=== PATIENT | female | born 1990 | race Caucasian/White ===

== ENCOUNTER 2016-07-03 11:00 | Outpatient (RCR) | payer OTHER | END 2016-07-18 | LOC: M OUTALCOH 11:00 | PROVIDERS: ATTEND Psychiatry & Neurology Psychiatry | DX: F11.20 Opioid dependence, uncomplicated (principal); F17.200 Nicotine dependence, unspecified, uncomplicated ==

== ENCOUNTER → 2016-09-15 | Outpatient (RCR) | payer OTHER ==
[~2016-09-15] MED LIST: AMIT24CA5 PO; IRON50TA PO; LATU1TAB PO; SUBO12MI SL; TRAZO50TA FT
== END ==
LOC: M OUTALCOH 08-17 09:58
PROVIDERS: ATTEND Psychiatry & Neurology Psychiatry
DX: F11.20 Opioid dependence, uncomplicated (principal); F17.200 Nicotine dependence, unspecified, uncomplicated

== ENCOUNTER 2016-09-17 10:35 | Emergency (ER) | payer OTHER ==
[~2016-09-17] VITALS: Ht 152.4 cm; Wt 47.6 kg
[2016-09-17 10:35] VITALS: BP 103/59
[2016-09-17] MEDS ORDERED: TRAZO50TA FT (10:50)
[2016-09-17] MEDS ORDERED: AMIT24CA5 PO (10:50)
[2016-09-17] MEDS ORDERED: IRON50TA PO (10:50)
[2016-09-17] MEDS ORDERED: SUBO12MI SL (10:50)
[2016-09-17] MEDS ORDERED: LATU1TAB PO (10:50)
[2016-09-17] MEDS ORDERED: MAGNESIUM CITRATE 300 ML BTL PO ONE (12:15)
[2016-09-17] MEDS ORDERED: GLYCERIN ADULT SUPP PR ONE (12:15)
== END 2016-09-17 12:16 | disposition home or self-care (01) ==
LOC: M ED 11:22
DX: K59.00 Constipation, unspecified (principal)

== ENCOUNTER 2016-10-13 13:00 | Outpatient (RCR) | payer OTHER | END 2016-10-15 | LOC: M OUTALCOH 13:00 | PROVIDERS: ATTEND Psychiatry & Neurology Psychiatry | DX: F11.20 Opioid dependence, uncomplicated (principal); F17.200 Nicotine dependence, unspecified, uncomplicated ==

== ENCOUNTER → 2016-11-15 | Outpatient (RCR) | payer OTHER | LOC: M OUTALCOH 10-19 13:00 | PROVIDERS: ATTEND Psychiatry & Neurology Psychiatry | DX: F11.20 Opioid dependence, uncomplicated (principal); F17.200 Nicotine dependence, unspecified, uncomplicated ==

== ENCOUNTER → 2016-11-24 | Outpatient (CLI) | payer OTHER ==
[2016-11-24 10:41] LABS: CONTROL LINE UCG INT CTR LINE PRESENT
== END ==
LOC: M LAB 09:46
PROVIDERS: ATTEND Family Medicine Adult Medicine
DX: F41.9 Anxiety disorder, unspecified (principal)

== ENCOUNTER → 2016-12-15 | Outpatient (RCR) | payer OTHER ==
[~2016-12-15] MED LIST changes: -AMIT24CA5 PO; +AMIT24CA7 PO; +BACT800T5 PO; +NAPR500T PO; +PROZ20CA11 PO; +PYRI1TAB5 PO
== END | disposition home or self-care (01) ==
LOC: M OUTALCOH 12-01 15:38
PROVIDERS: ATTEND Psychiatry & Neurology Psychiatry
DX: F11.20 Opioid dependence, uncomplicated (principal); F17.200 Nicotine dependence, unspecified, uncomplicated

== ENCOUNTER → 2016-12-15 | Outpatient (RCR) | payer OTHER | END | disposition home or self-care (01) | LOC: M OUTALCOH 11-17 15:03 | PROVIDERS: ATTEND Psychiatry & Neurology Psychiatry | DX: F11.20 Opioid dependence, uncomplicated (principal); F17.200 Nicotine dependence, unspecified, uncomplicated ==

== ENCOUNTER 2016-12-24 12:17 | Emergency (ER) | payer OTHER ==
[~2016-12-24] VITALS: Ht 152.4 cm; Wt 54.1 kg
[~2016-12-24 12:17] MED LIST changes: -BACT800T5 PO; -NAPR500T PO; -PROZ20CA11 PO; -PYRI1TAB5 PO
[2016-12-24] MEDS ORDERED: PROZ20CA11 PO (12:36)
[2016-12-24] MEDS ORDERED: NS 500 ML IV ONE (14:00)
[2016-12-24] MEDS ORDERED: KETOROLAC 30 MG/ML VIAL (J1885) IV ONE (14:00)
[2016-12-24] MEDS ORDERED: TRIMETHOBENZAMIDE HCL INJ 200 MG/2 ML VIAL (J3250) IM ONE (14:00)
[2016-12-24] MEDS ORDERED: diphenhydrAMINE INJ 50MG/ML VIAL (J1200) IV ONE (14:00)
--- NOTE | 2016-12-24 14:26 | REP ---
Clinical: Migraines with visual disturbances . Comparison: 08/29/2012 . Findings: The ventricles, sulci, and cisterns are normal in position and appearance. Byers-white differentiation is maintained. No acute intracranial hemorrhage, mass/mass effect, pathology or trauma/injury. No evidence for acute infarction. No extra-axial fluid collection. Calvarium is intact. Paranasal sinuses and mastoid air cells are clear. Impression: Normal noncontrast head CT. No evidence for acute intracranial pathology or trauma/injury. Signed by Micheal Avila MD 12/24/2016 02:18 P
[2016-12-24 15:20] VITALS: BP 116/58
== END 2016-12-24 15:55 | disposition home or self-care (01) ==
LOC: M ED 12:17
DX: R51 Headache (principal); F31.9 Bipolar disorder, unspecified; F17.210 Nicotine dependence, cigarettes, uncomplicated

== ENCOUNTER 2016-12-26 18:53 | Emergency (ER) | payer OTHER ==
[~2016-12-26] VITALS: Ht 152.4 cm; Wt 51.7 kg
[~2016-12-26 18:53] MED LIST changes: +PROZ20CA11 PO
[2016-12-26] MEDS ORDERED: PHENAZOPYRIDINE 100 MG TAB PO ONE (19:30)
[2016-12-26] MEDS ORDERED: ONDANSETRON 4 MG ORAL DISINTEGRATING TAB (S0181) PO ONE (19:45)
[2016-12-26] MEDS ORDERED: NAPROXEN 250 MG TAB PO ONE (19:45)
[2016-12-26 20:05] LABS: BASO % 0.7 % (0.0-1.0); EOS # 0.3 K/mm3 (0.0-0.50); EOS % 4.4 % (0.0-3.0); LARGE UNSTAINED CELL # 0.2 K/mm3 (0.0-0.4); LARGE UNSTAINED CELL % 2.1 % (0.0-4.0); LYMPH # 2.8 K/mm3 (1.5-6.5); LYMPH % 36.8 % (24.0-44.0); MEAN CORPUSCULAR HEMOGLOBIN 31.7 pg (27.0-33.0); MEAN CORPUSCULAR HGB CONC 36.2 g/dl (32.0-36.5); MEAN CORPUSCULAR VOLUME 87.7 fl (80.0-96.0); MONO # 0.4 K/mm3 (0.0-0.8); MONO % 4.6 % (0.0-5.0); NEUTROPHILS # 3.9 K/mm3 (1.8-7.7); NEUTROPHILS % 51.4 % (36.0-66.0); PLATELET COUNT, AUTOMATED 324 k/mm3 (150-450); RED CELL DISTRIBUTION WIDTH 11.7 % (11.5-14.5); WHITE BLOOD COUNT 7.6 K/mm3 (4.0-10.0)
[2016-12-26 20:12] LABS: ANION GAP 8 MEQ/L (8-16); BLOOD UREA NITROGEN 6 MG/DL (7-18); CALCIUM LEVEL 8.7 MG/DL (8.5-10.1); CARBON DIOXIDE LEVEL 26 MEQ/L (21-32); CHLORIDE LEVEL 100 MEQ/L (98-107); GLOMERULAR FILTRATION RATE > 60.0 (>60); GLUCOSE, FASTING 96 MG/DL (70-105); POTASSIUM SERUM 3.7 MEQ/L (3.5-5.1); SODIUM LEVEL 134 MEQ/L (136-145)
[2016-12-26 21:25] LABS: ERYTHROCYTE SEDIMENTATION RATE 15 mm/hr (0-20)
[2016-12-26] MEDS ORDERED: NAPR500T PO (21:26)
[2016-12-26] MEDS ORDERED: BACT800T5 PO (21:26)
[2016-12-26] MEDS ORDERED: PYRI1TAB5 PO (21:26)
[2016-12-26] MEDS ORDERED: BACTRIM 160MG/800MG DS TAB PO ONE (21:30)
[2016-12-26 21:34] VITALS: BP 110/63
== END 2016-12-26 21:37 | disposition home or self-care (01) ==
LOC: M ED 18:53
DX: N39.0 Urinary tract infection, site not specified (principal); R51 Headache

== ENCOUNTER 2017-01-04 15:47 | Emergency (ER) | payer OTHER ==
[~2017-01-04] VITALS: Ht 152.4 cm; Wt 45.5 kg
[~2017-01-04 15:47] MED LIST changes: +BACT800T5 PO; +NAPR500T PO; +PYRI1TAB5 PO
[2017-01-04 17:04] LABS: MICROSCOPIC INDICATED? MAN YES (NO)
[2017-01-04 17:19] LABS: BACTERIA, URINE MOD AMOUNT; HYALINE CAST, URINE NONE SEEN /lpf (0-1); RBC, URINE 0-1 /hpf (0-3); SQUAMOUS EPITHELIAL CELL URINE MOD AMOUNT /hpf (SMALL AMT)
[2017-01-04 17:20] LABS: MICROSCOPIC EXAM PERFORMED
[2017-01-04] MEDS ORDERED: PYRI1TAB5 PO (17:38)
[2017-01-04 17:48] VITALS: BP 109/61
== END 2017-01-04 17:53 | disposition home or self-care (01) ==
LOC: M ED 15:47
DX: R30.0 Dysuria (principal); R10.2 Pelvic and perineal pain; R11.0 Nausea; Z87.891 Personal history of nicotine dependence

== ENCOUNTER 2017-01-12 13:00 | Outpatient (RCR) | payer OTHER | END 2017-01-15 | LOC: M OUTALCOH 13:00 | PROVIDERS: ATTEND Psychiatry & Neurology Psychiatry | DX: F11.20 Opioid dependence, uncomplicated (principal); F17.200 Nicotine dependence, unspecified, uncomplicated ==

== ENCOUNTER 2017-01-19 10:00 | Outpatient (RCR) | payer OTHER | END 2017-02-15 | LOC: M OUTALCOH 10:00 | PROVIDERS: ATTEND Psychiatry & Neurology Psychiatry | DX: F11.20 Opioid dependence, uncomplicated (principal); F17.200 Nicotine dependence, unspecified, uncomplicated ==

== ENCOUNTER 2017-03-08 15:05 | Outpatient (RCR) | payer OTHER | END 2017-03-17 | LOC: M OUTALCOH 15:05 | PROVIDERS: ATTEND Psychiatry & Neurology Psychiatry | DX: F11.20 Opioid dependence, uncomplicated (principal); F17.200 Nicotine dependence, unspecified, uncomplicated ==

== ENCOUNTER 2017-07-22 05:17 | Inpatient (IN) | payer OTHER ==
[2017-07-22 06:20] LABS: HEMATOCRIT 37.8 % (36.0-47.0); HEMOGLOBIN 13.7 g/dl (12.0-16.0); MEAN CORPUSCULAR HEMOGLOBIN 31.7 pg (27.0-33.0); MEAN CORPUSCULAR HGB CONC 36.2 g/dl (32.0-36.5); MEAN CORPUSCULAR VOLUME 87.5 fl (80.0-96.0); PLATELET COUNT, AUTOMATED 340 10^3/uL (150-450); RED BLOOD COUNT 4.32 10^6/uL (4.00-5.40); RED CELL DISTRIBUTION WIDTH 11.9 % (11.5-14.5); WHITE BLOOD COUNT 7.2 10^3/uL (4.0-10.0)
[2017-07-22 06:48] LABS: CONTROL LINE HCG INT CTR LINE PRESENT; HCG, SERUM QUALITATIVE NEGATIVE (NEGATIVE)
[2017-07-22 06:56] LABS: AMPHETAMINES LEVEL URINE POSITIVE (NEGATIVE); BARBITURATES URINE NEGATIVE (NEGATIVE); BENZODIAZEPINES URINE NEGATIVE (NEGATIVE); CANNABINOIDS URINE NEGATIVE (NEGATIVE); COCAINE METABOLITE URINE NEGATIVE (NEGATIVE); METHADONE URINE NEGATIVE (NEGATIVE); OPIATES URINE NEGATIVE (NEGATIVE); PHENCYCLIDINE URINE NEGATIVE (NEGATIVE)
[2017-07-22 07:05] LABS: ALBUMIN 4.2 GM/DL (3.2-5.2); ALBUMIN/GLOBULIN RATIO 1.14 (1.00-1.93); ALKALINE PHOSPHATASE 83 U/L (45-117); ALT/SGPT 17 U/L (12-78); ANION GAP 12 MEQ/L (8-16); AST/SGOT 25 U/L (7-37); BILIRUBIN,DIRECT 0.3 MG/DL (0.0-0.2); BILIRUBIN,TOTAL 0.9 MG/DL (0.2-1.0); BLOOD UREA NITROGEN 5 MG/DL (7-18); CALCIUM LEVEL 9.5 MG/DL (8.5-10.1); CARBON DIOXIDE LEVEL 23 MEQ/L (21-32); CHLORIDE LEVEL 106 MEQ/L (98-107); CREATININE FOR GFR 0.62 MG/DL (0.55-1.30); ETHYL ALCOHOL (ETHANOL) < 0.003 % (0.000-0.010); GLOMERULAR FILTRATION RATE > 60.0 (>60); GLUCOSE, FASTING 103 MG/DL (70-100); POTASSIUM SERUM 3.8 MEQ/L (3.5-5.1); SALICYLATE LEVEL < 1.7 MG/DL (5.0-30.0); SODIUM LEVEL 141 MEQ/L (136-145); TOTAL PROTEIN 7.9 GM/DL (6.4-8.2)
[2017-07-22 07:07] LABS: ACETAMINOPHEN LEVEL < 2.0 UG/ML (10.0-30.0)
[2017-07-22] MEDS: LORazepam 1 MG TAB PO ×2 (09:38→12:05)
[2017-07-22] MEDS ORDERED: ACETAMINOPHEN TAB 650MG DOSE (2X325MG) PO (10:45)
[2017-07-22] MEDS ORDERED: MAALOX 30 ML SUSP *UDC PO (10:45)
[2017-07-22] MEDS ORDERED: MOM 30ML SUSPENSION UDC PO (10:45)
[2017-07-22] MEDS: BUPRENORPHINE/NALOXONE 8-2MG SUBLINGUAL TABLET(SUBOXONE) SL (12:55)
[2017-07-22] MEDS: OLANZapine ORAL DISINTEGRATING TAB 5MG PO (14:18)
[2017-07-23] MEDS: BUPRENORPHINE/NALOXONE 8-2MG SUBLINGUAL TABLET(SUBOXONE) SL (09:31)
[2017-07-23] MEDS ORDERED: MIRALAX *UNIT DOSE* 17GM PACKET PO (09:45)
[2017-07-23] MEDS: DOCUSATE SODIUM 100 MG CAP PO ×2 (10:02→20:33)
[2017-07-23] MEDS: SERTRALINE HCL 25 MG TABLET PO (15:29)
[2017-07-23] MEDS: traZODone 50 MG TAB PO (20:33)
[2017-07-23] MEDS: DIVALPROEX 250MG *ER* TAB PO (20:33)
[2017-07-24] MEDS: DIVALPROEX 250MG *ER* TAB PO ×2 (08:27→20:36)
[2017-07-24] MEDS: BUPRENORPHINE/NALOXONE 8-2MG SUBLINGUAL TABLET(SUBOXONE) SL (08:27)
[2017-07-24] MEDS: SERTRALINE HCL 25 MG TABLET PO (08:27)
[2017-07-24] MEDS: DOCUSATE SODIUM 100 MG CAP PO ×2 (08:27→20:36)
[2017-07-24] MEDS: OLANZapine ORAL DISINTEGRATING TAB 5MG PO (18:20)
[2017-07-24] MEDS: traZODone 50 MG TAB PO (20:36)
[2017-07-25] MEDS: DOCUSATE SODIUM 100 MG CAP PO (09:04)
[2017-07-25] MEDS: BUPRENORPHINE/NALOXONE 8-2MG SUBLINGUAL TABLET(SUBOXONE) SL (09:04)
[2017-07-25] MEDS: SERTRALINE HCL 25 MG TABLET PO (09:04)
[2017-07-25] MEDS: DIVALPROEX 250MG *ER* TAB PO (09:04)
== END 2017-07-25 11:10 | disposition home or self-care (01) | DRG 773 ==
LOC: M ED 05:17 → M ED INP 10:38 → M PSY 12:35
DX: F19.159 Other psychoactive substance abuse with psychoactive substance-induced psychotic disorder, unspecified (principal); F15.20 Other stimulant dependence, uncomplicated; F11.20 Opioid dependence, uncomplicated; F32.9 Major depressive disorder, single episode, unspecified; F43.10 Post-traumatic stress disorder, unspecified; K59.00 Constipation, unspecified; F10.20 Alcohol dependence, uncomplicated; F17.210 Nicotine dependence, cigarettes, uncomplicated; Z62.810 Personal history of physical and sexual abuse in childhood; Z81.3 Family history of other psychoactive substance abuse and dependence

== ENCOUNTER → 2017-09-27 | Outpatient (REF) | payer OTHER ==
[2017-09-27 13:38] LABS: HEMOGLOBIN 12.1 g/dl (12.0-15.5); MEAN CORPUSCULAR HEMOGLOBIN 31.8 pg (27.0-33.0); MEAN CORPUSCULAR HGB CONC 36.7 g/dl (32.0-36.5); MEAN CORPUSCULAR VOLUME 86.8 fl (80.0-96.0); PLATELET COUNT, AUTOMATED 363 10^3/uL (150-450); RED CELL DISTRIBUTION WIDTH 11.6 % (11.5-14.5)
[2017-09-27 14:19] LABS: HCG, SERUM QUANTITATIVE 85473 MIU/ML
[2017-09-28 09:10] LABS: RUBELLA IgG QUALITATIVE IMMUNE (IMMUNE)
[2017-09-28 09:23] LABS: HEPATITIS B SURFACE ANTIGEN NEGATIVE (NEGATIVE)
[2017-09-28 09:39] LABS: HEPATITIS C VIRUS ABY INDEX 0.1 INDEX (<0.8)
[2017-09-28 09:40] LABS: HIV 1&2 SCREEN CENTAUR NEGATIVE (NEGATIVE)
== END ==
LOC: M LAB REF 13:19
DX: O36.80X0 Pregnancy with inconclusive fetal viability, not applicable or unspecified (principal)

== ENCOUNTER → 2017-10-30 | Outpatient (REF) | payer OTHER ==
[2017-10-30 16:02] LABS: CHLAMYDIA DNA AMPLIFICATION NEGATIVE (NEGATIVE); GC DNA AMPLIFICATION NEGATIVE (NEGATIVE)
== END ==
LOC: M LAB REF 13:09
DX: Z34.81 Encounter for supervision of other normal pregnancy, first trimester (principal); Z3A.00 Weeks of gestation of pregnancy not specified
CPT/HCPCS: 87086

== ENCOUNTER 2018-02-02 12:22 | Outpatient (CLI) | payer OTHER ==
[2018-02-02] MEDS: LR 1,000 ML IV ×2 (13:56→14:47)
[2018-02-02] MEDS: TERBUTALINE SULFATE 1 MG/ML VIAL (J3105) SC (16:26)
== END 2018-02-02 17:05 | disposition home or self-care (01) ==
LOC: M LDO 12:22
DX: O26.892 Other specified pregnancy related conditions, second trimester (principal); Z3A.25 25 weeks gestation of pregnancy; O47.02 False labor before 37 completed weeks of gestation, second trimester
CPT/HCPCS: J3105

== ENCOUNTER → 2018-04-18 | Outpatient (REF) | payer OTHER | LOC: M LAB REF 16:42 | DX: Z34.83 Encounter for supervision of other normal pregnancy, third trimester (principal) ==

== ENCOUNTER 2018-04-22 18:05 | Inpatient (IN) | payer OTHER ==
[2018-04-22 19:07] LABS: HEMATOCRIT 27.6 % (36.0-47.0); HEMOGLOBIN 9.2 g/dl (12.0-15.5); MEAN CORPUSCULAR HGB CONC 33.3 g/dl (32.0-36.5); MEAN CORPUSCULAR VOLUME 87.1 fl (80.0-96.0); PLATELET COUNT, AUTOMATED 389 10^3/uL (150-450); RED BLOOD COUNT 3.17 10^6/uL (4.00-5.40); WHITE BLOOD COUNT 13.5 10^3/uL (4.0-10.0)
[2018-04-22 19:27] LABS: ALT/SGPT 16 U/L (12-78); AST/SGOT 21 U/L (7-37); BILIRUBIN,TOTAL 0.3 MG/DL (0.2-1.0); CREATININE FOR GFR 0.48 MG/DL (0.55-1.30); GLOMERULAR FILTRATION RATE > 60.0 (>60); LDH LACTATE DEHYDROGENASE 218 U/L (84-246); URIC ACID 3.4 MG/DL (2.6-6.0)
[2018-04-22 19:38] LABS: CREATININE,RANDOM URINE 39.4 MG/DL
[2018-04-22 19:38] LABS: TOTAL PROTEIN,RANDOM URINE 7.8 MG/DL (0.0-12.0)
[2018-04-22] MEDS: PENICILLIN G POTASSIUM IV 5 MU in D5W MINI-BAG PLUS 100 ML IV (19:53)
[2018-04-22] MEDS: hydrOXYzine 50 MG TAB PO (21:11)
[2018-04-23] MEDS: PROMETHAZINE INJ 25 MG/ML VIAL (J2550) IV (01:09)
[2018-04-23] MEDS: LACTATED RINGER'S 1000 ML IV (01:30)
[2018-04-23] MEDS ORDERED: FENTANYL 2MCG/ML ROPIVACAINE 0.2% IN 0.9% NACL 200ML IVBAG As Ordered (01:42)
[2018-04-23] MEDS ORDERED: LR 1,000 ML IV (01:42)
[2018-04-23] MEDS: FENTANYL/ROPIVACAINE/NACL BAG 200 ML EPIDURAL (02:12)
[2018-04-23] MEDS: PENICILLIN G POTASSIUM IV 2.5 MU in APPROPRIATE DILUENT 1 EA IV ×2 (02:35→06:52)
[2018-04-23] MEDS ORDERED: LACTATED RINGER'S 1000 ML IV (02:45)
[2018-04-23] MEDS ORDERED: EPIDURAL/PCA KEYS XX (02:45)
[2018-04-23] MEDS ORDERED: diphenhydrAMINE INJ 50MG/ML VIAL (J1200) IV (02:45)
[2018-04-23] MEDS ORDERED: ONDANSETRON 4MG/2ML VIAL (J2405) IV ×3 (02:45→08:15)
[2018-04-23] MEDS ORDERED: REFRIGERATOR IV KEYS XX (02:45)
[2018-04-23] MEDS ORDERED: EPIDURAL COMMENT XX (02:45)
[2018-04-23] MEDS ORDERED: ePHEDrine SULFATE 25 MG/5 ML(5MG/ML) SYRINGE IV (02:45)
[2018-04-23] MEDS ORDERED: NALOXONE INJ 0.4 MG/1 ML VIAL (J2310) IV ×3 (02:45→07:00)
[2018-04-23] MEDS ORDERED: METOCLOPRAMIDE INJ 10MG/2ML VIAL (J2765) IV ×2 (07:00→08:15)
[2018-04-23] MEDS ORDERED: NALBUPHINE HCL 10 MG/ML AMP (J2300) IV (07:00)
[2018-04-23 07:02] LABS: HEMATOCRIT 27.6 % (36.0-47.0); HEMOGLOBIN 9.1 g/dl (12.0-15.5); MEAN CORPUSCULAR HEMOGLOBIN 28.5 pg (27.0-33.0); MEAN CORPUSCULAR VOLUME 86.5 fl (80.0-96.0); PLATELET COUNT, AUTOMATED 345 10^3/uL (150-450); RED BLOOD COUNT 3.19 10^6/uL (4.00-5.40); RED CELL DISTRIBUTION WIDTH 12.8 % (11.5-14.5); WHITE BLOOD COUNT 18.7 10^3/uL (4.0-10.0)
[2018-04-23] MEDS ORDERED: fentaNYL 100 MCG/2 ML INJECTION (J3010) As Ordered ×5 (07:06→08:42)
[2018-04-23] MEDS ORDERED: LIDOCAINE 2% INJ 100 MG/5 ML SDV (FOR ANES.) As Ordered ×2 (07:06)
[2018-04-23] MEDS ORDERED: ONDANSETRON 4MG/2ML VIAL (J2405) As Ordered (07:08)
[2018-04-23] MEDS ORDERED: BICITRA 30ML SOLN UDC As Ordered (07:09)
[2018-04-23] MEDS ORDERED: ceFAZolin 2 GM/D5W 50 ML IV BAG (J0690 PER 500MG) As Ordered (07:10)
[2018-04-23] MEDS ORDERED: OXYTOCIN INJ 10 UNITS/ML VIAL (J2590) As Ordered ×4 (07:11)
[2018-04-23] MEDS ORDERED: KETAMINE HCL 200 MG/20 ML VIAL As Ordered (07:25)
[2018-04-23] MEDS ORDERED: MIDAZOLAM INJ 2 MG/2 ML VIAL (J2250) As Ordered (07:25)
[2018-04-23 07:30] LABS: ALT/SGPT 13 U/L (12-78); AST/SGOT 18 U/L (7-37); BILIRUBIN,TOTAL 0.5 MG/DL (0.2-1.0); CREATININE FOR GFR 0.51 MG/DL (0.55-1.30); GLOMERULAR FILTRATION RATE > 60.0 (>60); LDH LACTATE DEHYDROGENASE 196 U/L (84-246); URIC ACID 3.7 MG/DL (2.6-6.0)
[2018-04-23] MEDS: LR 1,000 ML IV (08:00)
[2018-04-23] MEDS ORDERED: ANUSOL HC CREAM 30GM TOP (08:00)
[2018-04-23 08:01] LABS: CORD GAS ABE V -1.7; CORD GAS HCO3 A 26.2 MEQ/L; CORD GAS O2 SAT A 70.4 %; CORD GAS O2 SAT V 81.1 %; CORD GAS PCO2 A 53.4 mmHg; CORD GAS PCO2 V 44.3 mmHg; CORD GAS PH A 7.308 UNITS; CORD GAS PH V 7.352 UNITS; CORD GAS PO2 A 30.2 mmHg; CORD GAS SBC V 22.7 MEQ/L; CORD GAS TCO2 A 27.8 MEQ/L; CORD GAS TCO2 V 25.4 MEQ/L
[2018-04-23] MEDS ORDERED: PERCOCET 5MG/325MG TAB PO (08:15)
[2018-04-23] MEDS ORDERED: fentaNYL 100 MCG/2 ML INJECTION (J3010) IV (08:15)
[2018-04-23] MEDS ORDERED: MEPERIDINE INJ 25 MG/ML VIAL (J2175) IV (08:15)
[2018-04-23] MEDS ORDERED: HYDROMORPHONE HCL 0.5 MG/ 0.5 ML SYRINGE (J1170 PER 1) IV (09:00)
[2018-04-23] MEDS ORDERED: LABETALOL 200 MG TAB PO (09:00)
[2018-04-23] MEDS ORDERED: HYDROMORPHONE HCL 0.5 MG/ 0.5 ML SYRINGE (J1170 PER 1) As Ordered ×3 (09:09→09:46)
[2018-04-23] MEDS: PRENATAL VITAMINS CHEWABLE TABLET PO (09:50)
[2018-04-23] MEDS: KETOROLAC 30 MG/ML VIAL (J1885) IV ×3 (09:50→19:51)
[2018-04-23] MEDS: LABETALOL HCL 100 MG/20 ML VIAL IV (09:50)
[2018-04-23] MEDS ORDERED: LABETALOL HCL 100 MG/20 ML VIAL As Ordered (09:51)
[2018-04-23] MEDS ORDERED: KETOROLAC 30 MG/ML VIAL (J1885) As Ordered (09:52)
[2018-04-23] MEDS: OXYTOCIN DRIP 30 UNITS in APPROPRIATE DILUENT 1 EA IV (10:00)
[2018-04-23] MEDS ORDERED: LIDOCAINE 1% MDV INJ 50 ML VIAL As Ordered (10:11)
[2018-04-23] MEDS: LABETALOL 200 MG TAB PO ×2 (11:06→21:36)
[2018-04-23] MEDS: MEASLES,MUMPS,RUBELLA VACCINE INJ (MMR-II) (90707) SC (11:21)
[2018-04-23] MEDS: RHOGAM 300 MCG (1500 IU) INJ (J2790) IM (11:21)
[2018-04-23] MEDS: ACETAMINOPHEN 500 MG TAB PO (18:20)
[2018-04-24] MEDS: ACETAMINOPHEN 500 MG TAB PO ×3 (00:31→15:56)
[2018-04-24] MEDS: IBUPROFEN 800 MG TAB PO ×3 (03:10→21:01)
[2018-04-24 07:14] LABS: HEMATOCRIT 23.6 % (36.0-47.0); MEAN CORPUSCULAR HEMOGLOBIN 29.1 pg (27.0-33.0); MEAN CORPUSCULAR HGB CONC 33.9 g/dl (32.0-36.5); MEAN CORPUSCULAR VOLUME 85.8 fl (80.0-96.0); PLATELET COUNT, AUTOMATED 327 10^3/uL (150-450); RED BLOOD COUNT 2.75 10^6/uL (4.00-5.40); RED CELL DISTRIBUTION WIDTH 13.1 % (11.5-14.5); WHITE BLOOD COUNT 14.3 10^3/uL (4.0-10.0)
[2018-04-24] MEDS: PRENATAL VITAMINS CHEWABLE TABLET PO ×2 (09:00→09:35)
[2018-04-24] MEDS: DOCUSATE SODIUM 100 MG CAP PO ×2 (09:35→21:01)
[2018-04-24] MEDS: LABETALOL 200 MG TAB PO ×2 (09:35→21:01)
[2018-04-24 14:43] LABS: BARBITURATES URINE REFLEX NEGATIVE (NEGATIVE); BENZODIAZEPINES URINE REFLEX NEGATIVE (NEGATIVE); COCAINE METABOLITE URINE REFLE NEGATIVE (NEGATIVE); METHADONE URINE REFLEX NEGATIVE (NEGATIVE); OPIATES URINE REFLEX NEGATIVE (NEGATIVE); PHENCYCLIDINE URINE REFLEX NEGATIVE (NEGATIVE)
[2018-04-24 15:05] LABS: AMPHETAMINES URINE REFLEX PENDING CONFIRMATION (NEGATIVE); CANNABINOIDS URINE REFLEX PENDING CONFIRMATION (NEGATIVE)
[2018-04-25] MEDS: IBUPROFEN 800 MG TAB PO ×2 (04:37→12:22)
[2018-04-25] MEDS: PRENATAL VITAMINS CHEWABLE TABLET PO (08:44)
[2018-04-25] MEDS: DOCUSATE SODIUM 100 MG CAP PO (08:44)
[2018-04-25] MEDS: LABETALOL 200 MG TAB PO (08:45)
[2018-04-25] MEDS: buPROPion **XL** TABLET 150MG (WELLBUTRIN XL) PO (12:22)
[2018-04-30 11:04] LABS: Amphetamine Positive (.); Amphetamines Positive (.); Cannabinoid Positive (.); GC Amphetamine >4000 ng/mL (Cutoff=500); GC Carboxy THC 42 ng/mL (Cutoff=10); Methamphetamine Negative (Cutoff=500)
== END 2018-04-25 14:15 | disposition home or self-care (01) | DRG 540 ==
LOC: M LDO 18:05 → M LDI 04-23 01:41 → M OBS 04-23 11:08
PROC: 10D00Z1 Extraction of Products of Conception, Low, Open Approach (ICD-10-PCS; principal; 2018-04-23 07:13)
DX: O60.14X0 Preterm labor third trimester with preterm delivery third trimester, not applicable or unspecified (principal); Z3A.36 36 weeks gestation of pregnancy; O99.324 Drug use complicating childbirth; F11.21 Opioid dependence, in remission; O13.4 Gestational [pregnancy-induced] hypertension without significant proteinuria, complicating childbirth; O32.1XX0 Maternal care for breech presentation, not applicable or unspecified; O99.334 Smoking (tobacco) complicating childbirth; O69.81X0 Labor and delivery complicated by cord around neck, without compression, not applicable or unspecified; F17.210 Nicotine dependence, cigarettes, uncomplicated; Z91.19 Patient's noncompliance with other medical treatment and regimen; O99.824 Streptococcus B carrier state complicating childbirth; Z37.0 Single live birth

== ENCOUNTER 2018-11-23 18:17 | Emergency (ER) | payer OTHER ==
[~2018-11-23] VITALS: Ht 152.4 cm; Wt 41.8 kg
[~2018-11-23 18:17] MED LIST changes: +ACE65ERTAB PO; +BUPR150T3 PO; +COLA100C5 PO; +DEPA250T2 PO; +DULO1CAP2; +IBUP80TA PO; +NAPR-837 PO; -NAPR500T PO; +OLAN5TAB PO; +PRENTAB7 PO; +RANI1TAB6 PO; +SERT25TA85 PO; +SUBO8MIS PO; +TRAZ1TAB10 FT; -TRAZO50TA FT; +ZOFR4TAB16 PO
[2018-11-23 18:18] VITALS: BP 142/82
[2018-11-23] MEDS ORDERED: NORG1TAB (18:31)
[2018-11-23] MEDS ORDERED: FLUO10CA8 (18:31)
[2018-11-23] MEDS ORDERED: ELIM5CRE2 TOP (18:54)
== END 2018-11-23 19:22 | disposition home or self-care (01) ==
LOC: M ED 18:17
DX: B86 Scabies (principal); F17.200 Nicotine dependence, unspecified, uncomplicated; Z88.1 Allergy status to other antibiotic agents; Z88.8 Allergy status to other drugs, medicaments and biological substances; Z79.899 Other long term (current) drug therapy; Z79.3 Long term (current) use of hormonal contraceptives

== ENCOUNTER 2018-11-30 11:25 | Emergency (ER) | payer OTHER ==
[~2018-11-30] VITALS: Ht 152.4 cm; Wt 43.8 kg
[2018-11-30 11:25] VITALS: BP 119/79
[~2018-11-30 11:25] MED LIST changes: +ELIM5CRE2 TOP; +FLUO10CA8; +NORG1TAB
[2018-11-30] MEDS ORDERED: PRED10TA2 PO (12:40)
== END 2018-11-30 12:53 | disposition home or self-care (01) ==
LOC: M ED 11:25
DX: B86 Scabies (principal); F41.9 Anxiety disorder, unspecified; Z88.1 Allergy status to other antibiotic agents; Z88.8 Allergy status to other drugs, medicaments and biological substances; F17.210 Nicotine dependence, cigarettes, uncomplicated

== ENCOUNTER 2019-01-08 12:21 | Emergency (ER) | payer OTHER ==
[~2019-01-08] VITALS: Ht 152.4 cm; Wt 42.7 kg
[2019-01-08 12:21] VITALS: BP 141/89
[~2019-01-08 12:21] MED LIST changes: -DULO1CAP2; +DULO1CAP5; -FLUO10CA8; +FLUO10CA8 PO; +PRED10TA2 PO
[2019-01-08] MEDS ORDERED: PRED20TA PO (12:32)
[2019-01-08] MEDS ORDERED: PERM5CRE9 TOP (12:32)
[2019-01-08] MEDS ORDERED: IVER1TAB PO (12:32)
[2019-01-08] MEDS ORDERED: HYDR-3363 PO (12:32)
[2019-01-08 13:59] LABS: AMPHETAMINES LEVEL URINE POSITIVE (NEGATIVE); BARBITURATES URINE NEGATIVE (NEGATIVE); BENZODIAZEPINES URINE NEGATIVE (NEGATIVE); CANNABINOIDS URINE NEGATIVE (NEGATIVE); COCAINE METABOLITE URINE NEGATIVE (NEGATIVE); METHADONE URINE NEGATIVE (NEGATIVE); OPIATES URINE NEGATIVE (NEGATIVE); PHENCYCLIDINE URINE NEGATIVE (NEGATIVE)
[2019-01-08] MEDS ORDERED: hydrOXYzine 25 MG TAB PO STA (14:47)
[2019-01-08 15:05] LABS: HEMATOCRIT 37.2 % (36.0-47.0); HEMOGLOBIN 12.9 g/dl (12.0-15.5); MEAN CORPUSCULAR HEMOGLOBIN 30.5 pg (27.0-33.0); MEAN CORPUSCULAR HGB CONC 34.7 g/dl (32.0-36.5); MEAN CORPUSCULAR VOLUME 87.9 fl (80.0-96.0); PLATELET COUNT, AUTOMATED 409 10^3/uL (150-450); RED BLOOD COUNT 4.23 10^6/uL (4.00-5.40); WHITE BLOOD COUNT 14.5 10^3/uL (4.0-10.0)
[2019-01-08 15:35] LABS: HCG, SERUM QUALITATIVE NEGATIVE (NEGATIVE)
[2019-01-08 15:47] LABS: ACETAMINOPHEN LEVEL < 2.0 UG/ML (10.0-30.0); ALBUMIN 3.9 GM/DL (3.2-5.2); ALT/SGPT 24 U/L (12-78); BILIRUBIN,DIRECT 0.2 MG/DL (0.0-0.2); BILIRUBIN,TOTAL 0.6 MG/DL (0.2-1.0); BLOOD UREA NITROGEN 11 MG/DL (7-18); C REACTIVE PROTEIN QUANTITATIV < 0.30 MG/DL (0.00-0.30); CALCIUM LEVEL 9.2 MG/DL (8.5-10.1); CARBON DIOXIDE LEVEL 30 MEQ/L (21-32); CHLORIDE LEVEL 106 MEQ/L (98-107); CREATININE FOR GFR 0.76 MG/DL (0.55-1.30); ETHYL ALCOHOL (ETHANOL) < 0.003 % (0.000-0.010); GLOMERULAR FILTRATION RATE > 60.0 (>60); GLUCOSE, FASTING 114 MG/DL (70-100); SALICYLATE LEVEL 2.5 MG/DL (5.0-30.0); SODIUM LEVEL 141 MEQ/L (136-145); THYROID STIMULATING HORMONE 0.057 uIU/ML (0.358-3.740); TOTAL PROTEIN 7.2 GM/DL (6.4-8.2)
== END 2019-01-08 19:57 | disposition home or self-care (01) ==
LOC: M ED 12:21
DX: T42.6X5A Adverse effect of other antiepileptic and sedative-hypnotic drugs, initial encounter (principal); Y92.9 Unspecified place or not applicable; Y93.9 Activity, unspecified; F41.9 Anxiety disorder, unspecified; Z72.0 Tobacco use; Z79.899 Other long term (current) drug therapy; Z88.1 Allergy status to other antibiotic agents; Z88.8 Allergy status to other drugs, medicaments and biological substances
CPT/HCPCS: 80048; 80076; 80307; 84443; 84703; 85027; 86140; 99282; G0480

== ENCOUNTER → 2019-01-13 | Outpatient (CLI) | payer OTHER ==
[~2019-01-13] MED LIST changes: +HYDR-3363 PO; +IVER1TAB PO; +PERM5CRE9 TOP; +PRED20TA PO
== END ==
LOC: M OUTALCOH 07:53
PROVIDERS: ATTEND Psychiatry & Neurology Psychiatry
DX: F15.20 Other stimulant dependence, uncomplicated (principal)

== ENCOUNTER → 2019-01-16 | Outpatient (REF) | payer OTHER ==
[2019-01-16 13:06] LABS: BASO # 0.1 10^3/uL (0.0-0.2); BASO % 0.7 % (0.0-1.0); EOS # 0.3 10^3/uL (0.0-0.50); HEMATOCRIT 39.4 % (36.0-47.0); HEMOGLOBIN 13.6 g/dl (12.0-15.5); LYMPH % 52.6 % (24.0-44.0); MEAN CORPUSCULAR HEMOGLOBIN 31.8 pg (27.0-33.0); MEAN CORPUSCULAR HGB CONC 34.5 g/dl (32.0-36.5); MEAN CORPUSCULAR VOLUME 92.1 fl (80.0-96.0); MONO # 0.8 10^3/uL (0.0-0.8); MONO % 10.5 % (0.0-5.0); NEUTROPHILS # 2.4 10^3/uL (1.8-7.7); NEUTROPHILS % 31.5 % (36.0-66.0); PLATELET COUNT, AUTOMATED 371 10^3/uL (150-450); RED BLOOD COUNT 4.28 10^6/uL (4.00-5.40); WHITE BLOOD COUNT 7.6 10^3/uL (4.0-10.0)
[2019-01-16 13:10] LABS: ALBUMIN 3.3 GM/DL (3.2-5.2); ALT/SGPT 20 U/L (12-78); BILIRUBIN,TOTAL 0.4 MG/DL (0.2-1.0); BLOOD UREA NITROGEN 7 MG/DL (7-18); CALCIUM LEVEL 8.5 MG/DL (8.5-10.1); CARBON DIOXIDE LEVEL 27 MEQ/L (21-32); CHLORIDE LEVEL 106 MEQ/L (98-107); CREATININE FOR GFR 0.59 MG/DL (0.55-1.30); GLOMERULAR FILTRATION RATE > 60.0 (>60); GLUCOSE, FASTING 81 MG/DL (70-100); POTASSIUM SERUM 4.4 MEQ/L (3.5-5.1); SODIUM LEVEL 139 MEQ/L (136-145); TOTAL PROTEIN 6.4 GM/DL (6.4-8.2)
== END ==
LOC: M LAB REF 12:21
PROVIDERS: ATTEND Nurse Practitioner Family
DX: Z13.9 Encounter for screening, unspecified (principal); R21 Rash and other nonspecific skin eruption

== ENCOUNTER → 2019-01-23 | Outpatient (REF) | payer OTHER ==
[2019-01-23 19:31] LABS: APPEARANCE, URINE CLEAR (CLEAR); BACTERIA, URINE AUTO NEGATIVE (NEGATIVE); BILIRUBIN, URINE AUTO NEGATIVE (NEGATIVE); BLOOD, URINE BLOOD 2+ (NEGATIVE); COLOR, URINE YELLOW (YELLOW); GLUCOSE, URINE (UA) AUTO NEGATIVE (NEGATIVE); KETONE, URINE AUTO NEGATIVE (NEGATIVE); LEUKOCYTE ESTERASE, URINE AUTO NEGATIVE (NEGATIVE); NITRITE, URINE AUTO NEGATIVE (NEGATIVE); PROTEIN, URINE AUTO NEGATIVE (NEGATIVE); RBC, URINE AUTO 40 /HPF (0-3); SPECIFIC GRAVITY URINE AUTO 1.009 (1.002-1.035); SQUAMOUS EPITHELIAL CELL UR AU 1 /HPF (0-6); UROBILINOGEN, URINE AUTO 0.2 mg/dL (0.0-2.0); WBC, URINE AUTO 1 /HPF (0-3)
== END ==
LOC: M LAB REF 17:14
PROVIDERS: ATTEND Family Medicine Addiction Medicine
DX: R30.0 Dysuria (principal)

== ENCOUNTER 2019-02-14 13:00 | Outpatient (RCR) | payer OTHER | END 2019-02-15 | LOC: M OUTALCOH 13:00 | PROVIDERS: ATTEND Psychiatry & Neurology Psychiatry | DX: F15.20 Other stimulant dependence, uncomplicated (principal); F12.10 Cannabis abuse, uncomplicated; F11.20 Opioid dependence, uncomplicated; F17.200 Nicotine dependence, unspecified, uncomplicated ==

== ENCOUNTER 2019-03-14 13:00 | Outpatient (RCR) | payer OTHER ==
[~2019-03-14 13:00] MED LIST changes: +RANI-356 PO; -RANI1TAB6 PO
== END 2019-03-17 ==
LOC: M OUTALCOH 13:00
PROVIDERS: ATTEND Psychiatry & Neurology Psychiatry
DX: F15.20 Other stimulant dependence, uncomplicated (principal); F12.10 Cannabis abuse, uncomplicated

== ENCOUNTER → 2019-04-17 | Outpatient (RCR) | payer OTHER ==
[~2019-04-17] MED LIST changes: -NORG1TAB; +NORG1TAB4
== END ==
LOC: M OUTALCOH 03-21 14:20
PROVIDERS: ATTEND Psychiatry & Neurology Psychiatry
DX: F15.20 Other stimulant dependence, uncomplicated (principal); F12.10 Cannabis abuse, uncomplicated; F17.200 Nicotine dependence, unspecified, uncomplicated; F11.20 Opioid dependence, uncomplicated

== ENCOUNTER 2019-05-12 14:00 | Outpatient (RCR) | payer OTHER | END 2019-05-17 | LOC: M OUTALCOH 14:00 | PROVIDERS: ATTEND Psychiatry & Neurology Psychiatry | DX: F15.20 Other stimulant dependence, uncomplicated (principal); F12.10 Cannabis abuse, uncomplicated; F17.200 Nicotine dependence, unspecified, uncomplicated; F11.21 Opioid dependence, in remission ==

== ENCOUNTER 2019-06-16 16:00 | Outpatient (RCR) | payer OTHER ==
[~2019-06-16 16:00] MED LIST changes: +FLUO10CA15 PO; -FLUO10CA8 PO; -RANI-356 PO; +RANI-397 PO
== END 2019-06-17 ==
LOC: M OUTALCOH 16:00
PROVIDERS: ATTEND Psychiatry & Neurology Psychiatry
DX: F15.20 Other stimulant dependence, uncomplicated (principal); F12.10 Cannabis abuse, uncomplicated; F11.20 Opioid dependence, uncomplicated; F17.200 Nicotine dependence, unspecified, uncomplicated

== ENCOUNTER → 2020-04-23 | Outpatient (CLI) | payer OTHER ==
[~2020-04-23] MED LIST changes: -FLUO10CA15 PO; +FLUO10CA16 PO
[2020-04-23 10:55] LABS: HEMOGLOBIN 13.9 g/dl (12.0-15.5); MEAN CORPUSCULAR HEMOGLOBIN 29.1 pg (27.0-33.0); MEAN CORPUSCULAR HGB CONC 33.1 g/dl (32.0-36.5); MEAN CORPUSCULAR VOLUME 87.9 fl (80.0-96.0); PLATELET COUNT, AUTOMATED 364 10^3/uL (150-450); RED BLOOD COUNT 4.78 10^6/uL (4.00-5.40); WHITE BLOOD COUNT 6.6 10^3/uL (4.0-10.0)
[2020-04-23 11:30] LABS: ALBUMIN 3.5 GM/DL (3.2-5.2); ALT/SGPT 12 U/L (12-78); BILIRUBIN,TOTAL 0.4 MG/DL (0.2-1.0); BLOOD UREA NITROGEN 10 MG/DL (7-18); CALCIUM LEVEL 9.3 MG/DL (8.5-10.1); CARBON DIOXIDE LEVEL 29 MEQ/L (21-32); CHLORIDE LEVEL 105 MEQ/L (98-107); CREATININE FOR GFR 0.62 MG/DL (0.55-1.30); GLOMERULAR FILTRATION RATE > 60.0 (>60); GLUCOSE, FASTING 93 MG/DL (70-100); HCG, SERUM QUALITATIVE NEGATIVE (NEGATIVE); POTASSIUM SERUM 4.7 MEQ/L (3.5-5.1); SODIUM LEVEL 138 MEQ/L (136-145); TOTAL PROTEIN 6.8 GM/DL (6.4-8.2)
[2020-04-23 11:50] LABS: HEPATITIS B SURFACE ANTIGEN NEGATIVE (NEGATIVE)
[2020-04-23 12:18] LABS: HEPATITIS C VIRUS ABY INDEX 0.1 INDEX (<0.8)
[2020-04-23 12:19] LABS: HIV 1&2 SCREEN CENTAUR NEGATIVE (NEGATIVE)
--- NOTE | 2020-04-24 08:11 | ECGEPIP ---
[facility] Test Date: 2020-04-23 Pat Name: BENI MC Department: Room: - Gender: Female [employer] Operator: [facility] : 1990 Requested By: Dany Webber Order Number: [id number] Reading MD: Lalito Whittaker Measurements Intervals [place] Rate: 90 P: 75 NV: 145 QRS: 88 QRSD: 99 T: 61 QT: 357 QTc: 439 Interpretive Statements SINUS RHYTHM Similar to tracing done 07-23-17 Electronically Signed on 04-24-2020 8:10:57 EST by Lalito Whittaker
== END ==
LOC: M LAB 09:51
PROVIDERS: ATTEND Family Medicine
DX: F11.90 Opioid use, unspecified, uncomplicated (principal)

== ENCOUNTER 2020-07-14 18:47 | Emergency (ER) | payer OTHER ==
[~2020-07-14] VITALS: Ht 152.4 cm; Wt 52.3 kg
[~2020-07-14 18:47] MED LIST changes: -BUPR150T3 PO; +BUPR150T4 PO
--- OUTSIDE RECORDS SUMMARY | 2020-07-14 18:52 | CCD ---
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 Name Role Phone Beto Cam MD Unavailable Unavailable Beto Cam MD Unavailable Unavailable Beto Cam MD Unavailable Unavailable Beto Cam MD Unavailable Unavailable Beto Cam MD Unavailable Unavailable Beto Cam MD Unavailable Unavailable Beto Cam MD Unavailable Unavailable Beto Cam MD Unavailable Unavailable Beto Cam MD Unavailable Unavailable Beto Cam MD Unavailable Unavailable Tutu, Beto Thompson MD Unavailable Unavailable Tutu, Beto Thompson MD Unavailable Unavailable Tutu, Beto Thompson MD Unavailable Unavailable Tutu, Beto Thompson MD Unavailable Unavailable Tutu, Beto Thompson MD Unavailable Unavailable Tutu, Beto Thompson MD Unavailable Unavailable Tutu, Beto Thompson MD Unavailable Unavailable Tutu, Beto Thompson MD Unavailable Unavailable Tutu, Beto Thompson MD Unavailable Unavailable Tutu, Beto Thompson MD Unavailable Unavailable Tutu, Beto Thompson MD Unavailable Unavailable Tutu, Beto Thompson MD Unavailable Unavailable Tutu, Beto Thompson MD Unavailable Unavailable Tutu, Beto Thompson MD Unavailable Unavailable Tutu, Beto Thompson MD Unavailable Unavailable Tutu, Beto Thompson MD Unavailable Unavailable Tutu, Beto Thompson MD Unavailable Unavailable Tutu, Beto Thompson MD Unavailable Unavailable Tutu, A Donna NEWTON Unavailable Unavailable Tutu, A Donna NEWTON Unavailable Unavailable Tutu, A Donna NEWTON Unavailable Unavailable Tutu, A Donna NEWTON Unavailable Unavailable Tutu, A Donna NEWTON Unavailable Unavailable Tutu, Beto Thompson MD Unavailable Unavailable Tutu, Beto Thompson MD Unavailable Unavailable Tutu, A Donna NEWTON Unavailable Unavailable Tutu, A Donna NEWTON Unavailable Unavailable Tutu, A Donna NEWTON Unavailable Unavailable Tutu, A Donna NEWTON Unavailable Unavailable Tutu, Beto Thompson MD Unavailable Unavailable Tutu, Beto Thompson MD Unavailable Unavailable Tutu, Beto Thompson MD Unavailable Unavailable Ttuu, Beto Thompson MD Unavailable Unavailable Tutu, A Donna NEWTON Unavailable Unavailable Tutu, A Donna NEWTON Unavailable Unavailable Tutu, A Donna NEWTON Unavailable Unavailable Tutu, A Donna NEWTON Unavailable Unavailable Tutu, Beto Thompson MD Unavailable Unavailable Tutu, Beto Thompson MD Unavailable Unavailable Tutu, Beto Thompson MD Unavailable Unavailable Tutu, Beto Thompson MD Unavailable Unavailable Tutu, Beto Thompson MD Unavailable Unavailable Tutu, Beto Thompson MD Unavailable Unavailable Tutu, Beto Thompson MD Unavailable Unavailable Tutu, Beto Thompson MD Unavailable Unavailable Tutu, Beto Thompson MD Unavailable Unavailable Tutu, Beto Thompson MD Unavailable Unavailable Tutu, Beto Thompson MD Unavailable Unavailable Tutu, Beto Thompson MD Unavailable Unavailable Tutu, Beto Thompson MD Unavailable Unavailable Tutu, Beto Thompson MD Unavailable Unavailable Tutu, Beto Thompson MD Unavailable Unavailable Tutu, Beto Thompson MD Unavailable Unavailable Tutu, Beto Thompson MD Unavailable Unavailable Tutu, Beto Thompson MD Unavailable Unavailable Tutu, Beto Thompson MD Unavailable Unavailable Tutu, Beto Thompson MD Unavailable Unavailable Tutu, Beto Thompson MD Unavailable Unavailable Tutu, Beto Thompson MD Unavailable Unavailable Tutu, Beto Thompson MD Unavailable Unavailable Tutu, Beto Thompson MD Unavailable Unavailable Tutu, Beto Thompson MD Unavailable Unavailable Tutu, Beto Thompson MD Unavailable Unavailable Tutu, A Donna MD Unavailable Unavailable Beto Cam MD Unavailable Unavailable Corbin Pedro MD Unavailable Unavailable Corbin Pedro MD Unavailable Unavailable Corbin Pedro MD Unavailable Unavailable Corbin Pedro MD Unavailable Unavailable Corbin Pedro MD Unavailable Unavailable Corbin Pedro MD Unavailable Unavailable Corbin Pedro MD Unavailable Unavailable Corbin Pedro MD Unavailable Unavailable Corbin Pedro MD Unavailable Unavailable Corbin Pedro MD Unavailable Unavailable Corbin Pedro MD Unavailable Unavailable Corbin Pedro MD Unavailable Unavailable Corbin Pedro MD Unavailable Unavailable Corbin Pedro MD Unavailable Unavailable Corbin Pedro MD Unavailable Unavailable Corbin Pedro MD Unavailable Unavailable Corbin Pedro MD Unavailable Unavailable Corbin Pedro MD Unavailable Unavailable Corbin Pedro MD Unavailable Unavailable Corbin Pedro MD Unavailable Unavailable Corbin Pedro MD Unavailable Unavailable Corbin Pedro MD Unavailable Unavailable Corbin Pedro MD Unavailable Unavailable Corbin Pedro MD Unavailable Unavailable Corbin Pedro MD Unavailable Unavailable Corbin Pedro MD Unavailable Unavailable Corbin Pedro MD Unavailable Unavailable Corbin Pedro MD Unavailable Unavailable Corbin Pedro MD Unavailable Unavailable Corbin Pedro MD Unavailable Unavailable Corbin Pedro MD Unavailable Unavailable Corbin Pedro MD Unavailable Unavailable Corbin Pedro MD Unavailable Unavailable Corbin Pedro MD Unavailable Unavailable Corbin Pedro MD Unavailable Unavailable Corbin Pedro MD Unavailable Unavailable Corbin Pedro MD Unavailable Unavailable Corbin Pedro MD Unavailable Unavailable Corbin Pedro MD Unavailable Unavailable Corbin Pedro MD Unavailable Unavailable Corbin Pedro MD Unavailable Unavailable Corbin Pedro MD Unavailable Unavailable Corbin Pedro MD Unavailable Unavailable Corbin Pedro MD Unavailable Unavailable Corbin Pedro MD Unavailable Unavailable Corbin Pedro MD Unavailable Unavailable Corbin Pedro MD Unavailable Unavailable Corbin Pedro MD Unavailable Unavailable Corbin Pedro MD Unavailable Unavailable Corbin Pedro MD Unavailable Unavailable Corbin Pedro MD Unavailable Unavailable Corbin Pedro MD Unavailable Unavailable Corbin Pedro MD Unavailable Unavailable Corbin Pedro MD Unavailable Unavailable Corbin Pedro MD Unavailable Unavailable Corbin Pedro MD Unavailable Unavailable Corbin Pedro MD Unavailable Unavailable Corbin Pedro MD Unavailable Unavailable Corbin Pedro MD Unavailable Unavailable Corbin Pedro MD Unavailable Unavailable Corbin Pedro MD Unavailable Unavailable Corbin Pedro MD Unavailable Unavailable Corbin Pedro MD Unavailable Unavailable Corbin Pedro MD Unavailable Unavailable Cobrin Pedro MD Unavailable Unavailable Corbin Pedro MD Unavailable Unavailable Corbin Pedro MD Unavailable Unavailable Corbin Perdo MD Unavailable Unavailable Corbin Pedro MD Unavailable Unavailable Corbin Pedro MD Unavailable Unavailable Corbin Pedro MD Unavailable Unavailable Corbin Pedro MD Unavailable Unavailable Corbin Pedro MD Unavailable Unavailable Corbin Pedro MD Unavailable Unavailable Corbin Pedro MD Unavailable Unavailable Corbin Pedro MD Unavailable Unavailable Corbin Pedro MD Unavailable Unavailable Corbin Pedro MD Unavailable Unavailable Corbin Pedro MD Unavailable Unavailable Corbin Pedro MD Unavailable Unavailable Corbin Pedro MD Unavailable Unavailable Corbin Pedro MD Unavailable Unavailable Corbin Pedro MD Unavailable Unavailable Corbin Pedro MD Unavailable Unavailable Corbin Pedro MD Unavailable Unavailable Corbin Pedro MD Unavailable Unavailable Corbin Pedro MD Unavailable Unavailable Corbin Pedro MD Unavailable Unavailable Corbin Pedro MD Unavailable Unavailable PRYBYLOWSKI, E BONITA PA Unavailable Unavailable PRYBYLOWSKI, E BONITA PA Unavailable Unavailable PRYBYLOWSKI, E BONITA PA Unavailable Unavailable PRYBYLOWSKI, E BONITA PA Unavailable Unavailable PRYBYLOWSKI, E BONITA PA Unavailable Unavailable PRYBYLOWSKI, E BONITA PA Unavailable Unavailable PRYBYLOWSKI, E BONITA PA Unavailable Unavailable PRYBYLOWSKI, E BONITA PA Unavailable Unavailable PRYBYLOWSKI, E BONITA PA Unavailable Unavailable PRYBYLOWSKI, E BONITA PA Unavailable Unavailable PRYBYLOWSKI, E BONITA PA Unavailable Unavailable PRYBYLOWSKI, E BONITA PA Unavailable Unavailable PRYBYLOWSKI, E BONITA PA Unavailable Unavailable PRYBYLOWSKI, E BONITA PA Unavailable Unavailable PRYBYLOWSKI, E BONITA PA Unavailable Unavailable PRYBYLOWSKI, E BONITA PA Unavailable Unavailable Corbin Pedro MD Unavailable Unavailable Corbin Pedro MD Unavailable Unavailable Corbin Pedro MD Unavailable Unavailable Corbin Pedro MD Unavailable Unavailable Corbin Pedro MD Unavailable Unavailable Corbin Pedro MD Unavailable Unavailable Corbin Pedro MD Unavailable Unavailable Corbin Pedro MD Unavailable Unavailable Corbin Pedro MD Unavailable Unavailable Corbin Pedro MD Unavailable Unavailable Corbin Pedro MD Unavailable Unavailable Corbin Pedro MD Unavailable Unavailable Corbin Pedro MD Unavailable Unavailable Corbin Pedro MD Unavailable Unavailable Corbin Pedro MD Unavailable Unavailable Corbin Pedro MD Unavailable Unavailable Corbin Pedro MD Unavailable Unavailable Corbin Pedro MD Unavailable Unavailable Corbin Pedro MD Unavailable Unavailable Corbin Pedro MD Unavailable Unavailable Corbin Pedro MD Unavailable Unavailable Corbin Pedro MD Unavailable Unavailable Corbin Pedro MD Unavailable Unavailable Corbin Pedro MD Unavailable Unavailable Corbin Pedro MD Unavailable Unavailable Corbin Pedro MD Unavailable Unavailable Corbin Pedro MD Unavailable Unavailable Corbin Pedro MD Unavailable Unavailable Corbin Pedro MD Unavailable Unavailable Corbin Pedro MD Unavailable Unavailable Corbin Pedro MD Unavailable Unavailable Corbin Pedro MD Unavailable Unavailable Corbin Pedro MD Unavailable Unavailable Corbin Pedro MD Unavailable Unavailable Corbin Pedro MD Unavailable Unavailable Corbin Pedro MD Unavailable Unavailable Corbin Pedro MD Unavailable Unavailable Corbin Pedro MD Unavailable Unavailable Corbin Pedro MD Unavailable Unavailable Corbin Pedro MD Unavailable Unavailable Corbin Pedro MD Unavailable Unavailable Corbin Pedro MD Unavailable Unavailable Corbin Pedro MD Unavailable Unavailable Corbin Pedro MD Unavailable Unavailable Corbin Pedro MD Unavailable Unavailable Corbin Pedro MD Unavailable Unavailable Corbin Pedro MD Unavailable Unavailable Corbin Pedro MD Unavailable Unavailable Corbin Pedro MD Unavailable Unavailable Corbin Pedro MD Unavailable Unavailable Corbin Pedro MD Unavailable Unavailable Corbin Pedro MD Unavailable Unavailable Corbin Pedro MD Unavailable Unavailable Corbin Pedro MD Unavailable Unavailable Corbin Pedro MD Unavailable Unavailable Corbin Pedro MD Unavailable Unavailable Corbin Pedro MD Unavailable Unavailable Corbin Pedro MD Unavailable Unavailable Corbin Pedro MD Unavailable Unavailable Corbin Pedro MD Unavailable Unavailable Corbin Pedro MD Unavailable Unavailable Corbin Pedro MD Unavailable Unavailable Corbin Pedro MD Unavailable Unavailable Corbin Pedro MD Unavailable Unavailable Corbin Pedro MD Unavailable Unavailable Corbin Pedro MD Unavailable Unavailable Corbin Pedro MD Unavailable Unavailable Corbin Pedro MD Unavailable Unavailable Corbin Pedro MD Unavailable Unavailable Corbin Pedro MD Unavailable Unavailable Corbin Pedro MD Unavailable Unavailable Corbin Pedro MD Unavailable Unavailable Corbin Pedro MD Unavailable Unavailable Corbin Pedro MD Unavailable Unavailable Corbin Pedro MD Unavailable Unavailable Corbin Pedro MD Unavailable Unavailable Corbin Pedro MD Unavailable Unavailable Corbin Pedro MD Unavailable Unavailable Corbin Pedro MD Unavailable Unavailable Corbin Pedro MD Unavailable Unavailable Corbin Pedro MD Unavailable Unavailable Corbin Pedro MD Unavailable Unavailable Corbin Pedro MD Unavailable Unavailable Corbin Pedro MD Unavailable Unavailable Corbin Pedro MD Unavailable Unavailable Corbin Pedro MD Unavailable Unavailable Corbin Pedro MD Unavailable Unavailable Corbin Pedro MD Unavailable Unavailable Corbin Pedro MD Unavailable Unavailable Kenyon, Crystal Unavailable Unavailable Kenyon, Crystal Unavailable Unavailable Kenyon, Crystal Unavailable Unavailable [place], J Priscila PA Unavailable Unavailable [place], J Priscila PA Unavailable Unavailable [place], J Priscila PA Unavailable Unavailable [place], J Priscila PA Unavailable Unavailable [place], J Priscila PA Unavailable Unavailable [place], J Priscila PA Unavailable Unavailable [place], J Priscila PA Unavailable Unavailable [place], J Priscila PA Unavailable Unavailable [place], J Priscila PA Unavailable Unavailable [place], J Priscila PA Unavailable Unavailable [place], J Priscila PA Unavailable Unavailable [place], J Priscila PA Unavailable Unavailable [place], J Priscila PA Unavailable Unavailable [place], J Priscila PA Unavailable Unavailable [place], J Priscila PA Unavailable Unavailable [place], J Priscila PA Unavailable Unavailable [place], J Priscila PA Unavailable Unavailable [place], J Priscila PA Unavailable Unavailable [place], J Priscila PA Unavailable Unavailable [place], J Priscila PA Unavailable Unavailable [place], J Priscila PA Unavailable Unavailable [place], J Priscila PA Unavailable Unavailable Manjeet, Mikala AUTOMOTIVE DRIVABILITY TECHNICIAN AUTOMOTIVE DRIVABILITY TECHNICIAN Unavailable Unavailable Manjeet, A Mikala AUTOMOTIVE DRIVABILITY TECHNICIAN Unavailable Unavailable Manjeet, A Mikala AUTOMOTIVE DRIVABILITY TECHNICIAN Unavailable Unavailable Manjeet, A Mikala AUTOMOTIVE DRIVABILITY TECHNICIAN Unavailable Unavailable Manjeet, A Mikala AUTOMOTIVE DRIVABILITY TECHNICIAN Unavailable Unavailable Manjeet, A Mikala AUTOMOTIVE DRIVABILITY TECHNICIAN Unavailable Unavailable Manjeet, A Mikala AUTOMOTIVE DRIVABILITY TECHNICIAN Unavailable Unavailable Manjeet, A Mikala AUTOMOTIVE DRIVABILITY TECHNICIAN Unavailable Unavailable Manjeet, A Mikala AUTOMOTIVE DRIVABILITY TECHNICIAN Unavailable Unavailable Manjeet, A Mikala AUTOMOTIVE DRIVABILITY TECHNICIAN Unavailable Unavailable Manjeet, A Mikala AUTOMOTIVE DRIVABILITY TECHNICIAN Unavailable Unavailable Manjeet, A Mikala AUTOMOTIVE DRIVABILITY TECHNICIAN Unavailable Unavailable Manjeet, A Mikala AUTOMOTIVE DRIVABILITY TECHNICIAN Unavailable Unavailable Manjeet, A Mikala AUTOMOTIVE DRIVABILITY TECHNICIAN Unavailable Unavailable Manjeet, A Mikala AUTOMOTIVE DRIVABILITY TECHNICIAN Unavailable Unavailable Manjeet, A Mikala AUTOMOTIVE DRIVABILITY TECHNICIAN Unavailable Unavailable Manjeet, A Mikala AUTOMOTIVE DRIVABILITY TECHNICIAN Unavailable Unavailable Manjeet, A Mikala AUTOMOTIVE DRIVABILITY TECHNICIAN Unavailable Unavailable Manjeet, A Mikala AUTOMOTIVE DRIVABILITY TECHNICIAN Unavailable Unavailable Manjeet, A Mikala AUTOMOTIVE DRIVABILITY TECHNICIAN Unavailable Unavailable Manjeet, A Mikala AUTOMOTIVE DRIVABILITY TECHNICIAN Unavailable Unavailable Manjeet, A Mikala AUTOMOTIVE DRIVABILITY TECHNICIAN Unavailable Unavailable Manjeet, A Mikala AUTOMOTIVE DRIVABILITY TECHNICIAN Unavailable Unavailable Manjeet, A Mikala AUTOMOTIVE DRIVABILITY TECHNICIAN Unavailable Unavailable Manjeet, A Mikala AUTOMOTIVE DRIVABILITY TECHNICIAN Unavailable Unavailable Manjeet, A Mikala AUTOMOTIVE DRIVABILITY TECHNICIAN Unavailable Unavailable Manjeet, A Mikala AUTOMOTIVE DRIVABILITY TECHNICIAN Unavailable Unavailable Manjeet, A Mikala AUTOMOTIVE DRIVABILITY TECHNICIAN Unavailable Unavailable Re-disclosure Warning The records that you are about to access may contain information from federally-assisted alcohol or drug abuse programs. If such information is present, then the following federally mandated warning applies: This information has been disclosed to you from records protected by federal confidentiality rules (42 CFR part 2). The federal rules prohibit you from making any further disclosure of this information unless further disclosure is expressly permitted by the written consent of the person to whom it pertains or as otherwise permitted by 42 CFR part 2. A general authorization for the release of medical or other information is NOT sufficient for this purpose. The Federal rules restrict any use of the information to criminally investigate or prosecute any alcohol or drug abuse patient.The records that you are about to access may contain highly sensitive health information, the redisclosure of which is protected by Article 27-F of the [facility] Public Health law. If you continue you may have access to information: Regarding HIV / AIDS; Provided by facilities licensed or operated by the [facility] Office of Mental Health; or Provided by the [facility] Office for People With Developmental Disabilities. If such information is present, then the following [facility] mandated warning applies: This information has been disclosed to you from confidential records which are protected by state law. State law prohibits you from making any further disclosure of this information without the specific written consent of the person to whom it pertains, or as otherwise permitted by law. Any unauthorized further disclosure in violation of state law may result in a fine or usp sentence or both. A general authorization for the release of medical or other information is NOT sufficient authorization for further disc losure. Family History Family Member Name Family Member Gender Family Member Status Date o f Status Description Data Source(s) Unknown Male Problem [facility] ([facility]) Unknown Male Problem [facility] ([facility]) Unknown Male Problem [facility] ([facility]) Encounters Encounter Providers Location Date Indications Data Source(s ) Attender: Priscila MEJIA [place] 11/2019 08:19:00 AM EST - 04/23/2020 08:19:00 AM EST [facility] ([facility]) Outpatient Attender: Ortega Pedro MD 04/19/2020 11:16:[address] [facility] Ortega Pedro MD: [address] [place] [id number], Ph. Attender: Ortega Pedro MD [facility] 04/19/2020 12:00:00 AM EST [facility] ([facility] [place]) Attender: Crystal [place] 04/01 01:20:00 PM EDT - 04/01/2020 01:20:00 PM EDT [facility] ([facility]) Outpatient Attender: Ortega Pedro MD FP 04/01/2020 10:19:01 AM EDT [facility] Out[facility] Attender: Ortega Pedro MD FP 03/30/2020 09:50:01 AM EDT [facility] Outpatient Attender: Ortega Pedro MD FP 03/29/2020 01:22:02 PM EDT [facility] Outpatient Attender: Ortega Pedro MD FP 03/26/2020 11:40:02 AM EDT [facility] Outpatient Attender: Ortega Pedro MD FP 03/26/2020 10:50:00 AM EDT [facility] Outpatient Attender: Ortega Pedro MD FP 03/22/2020 03:38:02 PM EDT [facility] Outpatient Attender: Ortega Pedro MD FP 03/22/2020 11:18:00 AM EDT [facility] Outpatient Attender: Ortega Pedro MD FP 03/10/2020 11:31:02 AM EDT [facility] Outpatient Attender: Ortega Pedro MD FP 03/06/2020 10:16:01 AM EDT [facility] Outpatient Attender: Ortega Pedro MD FP 03/03/2020 05:03:00 PM EDT [facility] Outpatient Attender: Ortega Pedro MD FP 03/02/2020 11:45:00 AM EDT [facility] Outpatient Attender: Ortega Pedro MD FP 03/02/2020 11:44:02 AM EDT [facility] Outpatient Attender: Ortega Pedro MD FP 03/01/2020 02:14:00 PM EDT [facility] Outpatient Attender: Ortega Pedro MD FP 02/17/2020 10:08:00 AM EDT [facility] Outpatient Attender: Ortega Pedro MD FP 02/10/2020 10:10:00 AM EDT [facility] Outpatient Attender: Ortega Pedro MD FP 02/03/2020 03:25:02 PM EDT [facility] Outpatient Attender: Ortega Pedro MD FP 02/02/2020 01:43:02 PM EDT [facility] Outpatient Attender: Ortega Pedro MD FP 02/02/2020 01:42:02 PM EDT [facility] Outpatient Attender: Ortega Pedro MD FP 02/02/2020 11:29:01 AM EDT [facility] Outpatient Attender: Ortega BIGGS 02/02/2020 11:08:01 AM EDT [facility] Attender: BONITA Ennis 01/28/2020 10:45:00 AM EDT - 01/28/2020 10:45:00 AM EDT [facility] ([facility]) Outpatient Attender: Ortega Pedro MD FP 01/28/2020 10:18:[address] [facility] OutpatientOFFICE VISIT, EST Attender: Crystal MEJIA Dane [place] 01/28/2020 08:40:00 AM EDT - 01/28/2020 08:40:00 AM EDT Human immunodeficiency virus [HIV] counselingEncounter for surveillance of contraceptive pillsEncounter for oth general cnsl and advice on contraception [facility] ([facility]) Human immunodeficiency virus [HIV] couns eling Encounter for surveillance of contracept elle pills Encounter for oth general cnsl and advic e on contraception Attender: Donna Cam MD [facility] [place] 01:45:00 PM EDT - 01/15/2020 01:45:00 PM EDT [facility] ([facility]) Outpatient Attender: Ortega Pedro MD FP 01/06/2020 03:21:[address] [facility] Outpatient Attender: Ortega Pedro MD FP 01/05/2020 10:53:[address] [facility] Outpatient Attender: Ortega Pedro MD FP 01/02/2020 02:27:00 PM EDT [facility] Outpatient Attender: Ortega Pedro MD FP 01/02/2020 08:42:01 AM EDT [facility] Outpatient Attender: Ortega BIGGS 12/29/2019 11:52:[address] [facility] Outpatient Attender: Ortega Pedro MD FP 12/17/2019 08:10:[address] [facility] Outpatient Attender: Ortega Pedro MD FP 12/17/2019 08:09:[address] [facility] Outpatient Attender: Ortega BIGGS 12/17/2019 08:08:[address] [facility] Outpatient Attender: Ortega Pedro MD FP 12/11/2019 10:40:01 AM EDT [facility] Outpatient Attender: Ortega Pedro MD FP 12/08/2019 02:55:01 PM EDT [facility] Outpatient Attender: Ortega Pedro MD FP 12/03/2019 03:43:02 PM EDT [facility] Outpatient Attender: Ortega Pedro MD FP 11/13/2019 07:58:01 AM EDT [facility] Outpatient Attender: CLARK WESTFALLP FP 11/06/2019 09:49:01 A M EDT [facility] Outpatient Attender: Mikala WESTFALLP FP 11/04/2019 09:3 4:00 AM EDT [facility] Outpatient Attender: Mikala WESTFALLP FP 10/22/2019 10:0 1:01 AM EDT [facility] Outpatient Attender: CLARK WESTFALLP FP 10/20/2019 02:37:00 P M EDT [facility] Outpatient Attender: CLARK WESTFALLP FP 09/24/2019 11:23:01 A M EDT [facility] Outpatient Attender: CLARK WESTFALLP FP 09/23/2019 02:56:01 P M EDT [facility] Outpatient Attender: CLARK WESTFALLP FP 08/18/2019 12:57:00 P M [facility] Out[facility] Attender: CLARK WESTFALLP FP 08/11/2019 03:09:00 P M [facility] Outpatient Attender: CLARK WESTFALLP FP 07/30/2019 10:22:01 A M [facility] Outpatient Attender: CLARK WESTFALLP FP 07/16/2019 03:20:00 P M [facility] Outpatient Attender: CLARK WESTFALLP FP 2019 10:49:00 A M [facility] Outpatient Attender: CLARK WESTFALLP FP 2019 10:48:00 A M [facility] Outpatient Attender: CLARK WESTFALLP FP 2019 10:47:00 A M [facility] Outpatient Attender: CLARK WESTFALLP FP 2019 10:34:01 A M [facility] Outpatient Attender: CLARK WESTFALLP FP 2019 10:25:01 A Outpatient Attender: CLARK Manjeet [facility] 2019 10:23:00 A Outpatient Attender: CLARK Manjeet [facility] 2019 10:22:01 A Outpatient Attender: Mikala Burroughs [facility] 06/10/2019 07:4 8:00 AM [facility] Outpatient Attender: CLARK Manjeet [facility] 06/04/2019 10:24:01 A Outpatient Attender: CLARK Manjeet [facility] 06/04/2019 10:09:01 A Outpatient Attender: CLARK Manjeet [facility] 05/28/2019 02:00:01 P Outpatient Attender: CLARK Manjeet [facility] 05/28/2019 08:39:01 A Attender: Priscila CARLTON [facility] [place] 05/18 10:45:00 AM [facility] - 05/27/2019 10:45:00 AM [facility] Other specified noninflammatory disorder s of vaginaEncounter for oth general cnsl and advice on contraceptionHuman immunodeficiency virus [HIV] counselingOther sex counselingHigh risk heterosexual behaviorEncntr screen for infections w sexl mode of transmiss Next[facility] ([facility]) Other specified noninflammatory disorder s of vagina Encounter for oth general cnsl and advic e on contraception Human immunodeficiency virus [HIV] couns eling Other sex counseling High risk heterosexual behavior Encntr screen for infections w sexl mode of transmiss Outpatient Attender: CLARK Burroughs [facility] 05/26/2019 01:22:00 P Outpatient Attender: Mikalashannen Burroughs [facility] 05/26/2019 09:2 2:02 AM [facility] Outpatient Attender: CLARK Burroughs [facility] 05/21/2019 10:01:00 A Outpatient Attender: CLARK Manjeet [facility] 05/16/2019 02:27:00 P Immunizations Vaccine Date Status Description Data Source(s) New in 2011. IIV4 04/19/2020 12:20:00 PM EST completed 0.5 mL FADIA ([facility]) Medications Medication Brand Name Start Date Product Form Dose Route Admi nistrative Instructions Pharmacy Instructions Status Indications Reaction Description Data Source(s) 30 mg 06/21/2020 12:00:00 AM EST capsule 30 TAKE ONE CAPSULE BY MOUTH EVERY DAY MAXIMUM DAILY DOSE = 1 CAPSULE TAKE ONE CAPSULE BY MOUTH EVERY DAY MAXI MUM DAILY DOSE = 1 CAPSULE SOLD: 06/23/2020 [facility] 40 mg 05/14/2020 12:00:00 AM EST capsule 30 TAKE ONE CAPSULE BY MOUTH EVERY DAY TAKE ONE CAPSULE BY MOUTH EVERY DAY SOLD: 05/21/2020 [facility] 30 mg 05/11/2020 12:00:00 AM EST capsule 30 TAKE ONE CAPSULE BY MOUTH EVERY DAY MAXIMUM DAILY DOSE = 1 CAPSULE TAKE ONE CAPSULE BY MOUTH EVERY DAY MAXI MUM DAILY DOSE = 1 CAPSULE SOLD: 05/11/2020 [facility] Tri-Lo-Haylee 28 Day Pack 0.18/0.215/0.25 mg-25 mcg NORG ESTIMATE-ETHINYL ESTRADIOL 04/20/2020 12:00:00 AM EST tablet 84 T ROMANA ONE TABLET BY MOUTH EVERY DAY AT THE SAME TIME OF DAY. TO SKIP PERIODS, BEGIN NEXT PACK AFTER COMPLETING 3RD WEEK OR PILL PACK . SKIP 4TH WEEK OF PILL PACK TAKE ONE TABLET BY MOUTH EVERY DAY AT THE SAME TIME OF DAY. TO SKIP PERIODS, BEGIN NEXT PACK AFTER COMPLETING 3RD WEEK OR PILL PACK . SKIP 4TH WEEK OF PILL PACK SOLD: 04/21/2020 [facility] Tri-Lo-Haylee 28 Day Pack 0.18/0.215/0.25 mg-25 mcg NORG ESTIMATE-ETHINYL ESTRADIOL 04/20/2020 12:00:00 AM EST tablet 84 T ROMANA ONE TABLET BY MOUTH EVERY DAY AT THE SAME TIME OF DAY. TO SKIP PERIODS, BEGIN NEXT PACK AFTER COMPLETING 3RD WEEK OR PILL PACK . SKIP 4TH WEEK OF PILL PACK TAKE ONE TABLET BY MOUTH EVERY DAY AT THE SAME TIME OF DAY. TO SKIP PERIODS, BEGIN NEXT PACK AFTER COMPLETING 3RD WEEK OR PILL PACK . SKIP 4TH WEEK OF PILL PACK SOLD: 07/08/2020 [facility] 8-2 mg 04/19/2020 12:00:00 AM EST film 30 PLACE ONE FILM UNDER THE TONGUE EVERY DAY MAXIMUM DAILY DOSE = [address] ONE FILM UNDER THE TONGUE EVERY DA Y MAXIMUM DAILY DOSE = 1 FILM SOLD: 04/21/2020 [facility] 30 mg 04/08/2020 12:00:00 AM EDT capsule 30 TAKE ONE CAPSULE BY MOUTH EVERY DAY MAXIMUM DAILY DOSE = 1 CAPSULE TAKE ONE CAPSULE BY MOUTH EVERY DAY MAXI MUM DAILY DOSE = 1 CAPSULE SOLD: 04/10/2020 [facility] 8-2 mg 03/24/2020 12:00:00 AM EDT film 30 PL[address] ONE FILM UNDER THE TONGUE EVERY DAY MAXIMUM DAILY DOSE = [address] ONE FILM UNDER THE TONGUE EVERY DA Y MAXIMUM DAILY DOSE = 1 FILM SOLD: 03/26/2020 [facility] 8-2 mg 03/17/2020 12:00:00 AM EDT film 7 PLACE ONE FILM UNDER THE TONGUE EVERY DAY PLACE ONE FILM UNDER THE TONGUE EVERY DAY SOLD: 03/18/2020 [facility] 30 mg 03/11/2020 12:00:00 AM EDT capsule 30 TAKE ONE CAPSULE BY MOUTH EVERY DAY TAKE ONE CAPSULE BY MOUTH EVERY DAY SOLD: 03/13/2020 [facility] 8-2 mg 03/05/2020 12:00:00 AM EDT film 5 PLACE ONE FILM UNDER THE TONGUE EVERY DAY MAXIMUM DAILY DOSE = [address] ONE FILM UNDER THE TONGUE EVERY DA Y MAXIMUM DAILY DOSE = 1 FILM SOLD: 03/07/2020 [facility] 30 mg 02/10/2020 12:00:00 AM EDT capsule 30 TAKE ONE CAPSULE BY MOUTH EVERY DAY MAXIMUM DAILY DOSE = ONE CAPSULE TAKE ONE CAPSULE BY MOUTH EVERY DAY MAXI MUM DAILY DOSE = ONE CAPSULE SOLD: 02/10/2020 [facility] 8-2 mg 02/05/2020 12:00:00 AM EDT film 30 PLACE ONE FILM UNDER THE TONGUE EVERY DAY MAXIMUM DAILY DOSE = 1 PLACE ONE FILM UNDER THE TONGUE EVERY DA Y MAXIMUM DAILY DOSE = 1 SOLD: 02/05/2020 [facility] Tri-Lo-Haylee 28 Day Pack 0.18/0.215/0.25 mg-25 mcg NORG ESTIMATE-ETHINYL ESTRADIOL 01/28/2020 12:00:00 AM EDT tablet 84 TAKE ONE TABLET BY MOUTH EVERY DAY TAKE ONE TABLET BY MOUTH EVERY DAY SOLD: 01/30/2020 [facility]-Gruwjjpq 0.18 mg/0.215 mg/0.25 mg-25 mcg tablet {7 (ethinyl estradiol 0.025 MG / norgestimate 0.18 MG Oral Tablet) / 7 (ethinyl estradiol 0.025 MG / norgestimate 0.215 MG Oral Tablet) / 7 (ethinyl estradiol 0.025 MG / norgestimate 0.25 MG Oral Tablet) / 7 (inert ingredients 1 MG Oral Tablet) } Pack 01/28/2020 12:00:00 AM EDT 1.00 {tablet} ORAL acti ve Byw-Uc-Dotjlqta 28 Day Pack NextGen ([facility]) 30 mg 01/08/2020 12:00:00 AM EDT capsule 30 TAKE ONE CAPSULE BY MOUTH EVERY DAY MAXIMUM DAILY DOSE = 1 CAPSULE TAKE ONE CAPSULE BY MOUTH EVERY DAY MAXI MUM DAILY DOSE = 1 CAPSULE SOLD: 01/10/2020 [facility] 8-2 mg 01/05/2020 12:00:00 AM EDT film 30 [address]ACE ONE FILM UNDER THE TONGUE EVERY DAY MAXIMUM DAILY DOSE = [address] ONE FILM UNDER THE TONGUE EVERY DA Y MAXIMUM DAILY DOSE = 1 FILM SOLD: 01/07/2020 [facility] 20 mg 01/02/2020 12:00:00 AM EDT capsule 30 TAKE ONE CAPSULE BY MOUTH EVERY DAY MAXIMUM DAILY DOSE = 1 CAPSULE TAKE ONE CAPSULE BY MOUTH EVERY DAY MAXI MUM DAILY DOSE = 1 CAPSULE SOLD: 01/02/2020 [facility] 8-2 mg 12/11/2019 12:00:00 AM EDT film 30 TAKE 1 FILM UNDER THE TONGUE DAILY. MAXIMUM DAILY DOSE = 1 TAKE 1 FILM UNDER THE TONGUE DAILY. MAXI MUM DAILY DOSE = 1 SOLD: 12/11/2019 [facility] 20 mg 12/03/2019 12:00:00 AM EDT capsule 30 TAKE ONE CAPSULE BY MOUTH EVERY DAY FOR ADHD MAXIMUM DAILY DOSE = ONE CAPSULE TAKE ONE CAPSULE BY MOUTH EVERY DAY FOR ADHD MAXIMUM DAILY DOSE = ONE CAPSULE SOLD: 12/04/2019 [facility] 40 mg 11/11/2019 12:00:00 AM EDT capsule 30 TAKE ONE CAPSULE BY MOUTH EVERY DAY TAKE ONE CAPSULE BY MOUTH EVERY DAY SOLD: 04/21/2020 [facility] 40 mg 11/11/2019 12:00:00 AM EDT capsule 30 TAKE ONE CAPSULE BY MOUTH EVERY DAY TAKE ONE CAPSULE BY MOUTH EVERY DAY SOLD: 12/14/2019 [facility] 40 mg 11/11/2019 12:00:00 AM EDT capsule 30 TAKE ONE CAPSULE BY MOUTH EVERY DAY TAKE ONE CAPSULE BY MOUTH EVERY DAY SOLD: 11/12/2019 [facility] 8-2 mg 11/11/2019 12:00:00 AM EDT film [address] ONE FILM UNDER THE TONGUE EVERY DAY MAXIMUM DAILY DOSE = [address] ONE FILM UNDER THE TONGUE EVERY DA Y MAXIMUM DAILY DOSE = 1 FILM SOLD: 11/12/2019 [facility] 40 mg 11/11/2019 12:00:00 AM EDT capsule 30 TAKE ONE CAPSULE BY MOUTH EVERY DAY TAKE ONE CAPSULE BY MOUTH EVERY DAY SOLD: 01/16/2020 [facility] 40 mg 11/11/2019 12:00:00 AM EDT capsule 30 TAKE ONE CAPSULE BY MOUTH EVERY DAY TAKE ONE CAPSULE BY MOUTH EVERY DAY SOLD: 02/15/2020 [facility] 40 mg 11/11/2019 12:00:00 AM EDT capsule 30 TAKE ONE CAPSULE BY MOUTH EVERY DAY TAKE ONE CAPSULE BY MOUTH EVERY DAY SOLD: 03/18/2020 [facility] 20 mg 11/04/2019 12:00:00 AM EDT capsule 30 TAKE ONE CAPSULE BY MOUTH EVERY DAY FOR ADHD MAXIMUM DAILY DOSE = 1 CAPSULE TAKE ONE CAPSULE BY MOUTH EVERY DAY FOR ADHD MAXIMUM DAILY DOSE = 1 CAPSULE SOLD: 11/06/2019 [facility] 150 mg 10/29/2019 12:00:00 AM EDT tablet 2 TAKE 1 TABLET BY MOUTH ONCE AND REPEAT IN 72 HOURS IF STILL SYMPTOMATIC TAKE 1 TABLET BY MOUTH ONCE AND REPEAT IN 72 HOURS IF STILL SYMPTOMATIC SOLD: 10/29/2019 [facility] 100 mg 10/24/2019 12:00:00 AM EDT capsule 14 TAKE ONE CAPSULE BY MOUTH TWO TIMES A DAY FOR 7 DAYS TAKE ONE CAPSULE BY MOUTH TWO TIMES A DAY FOR 7 DAYS SOLD: 10/24/2019 [facility] 8-2 mg 10/24/2019 12:00:00 AM EDT film 14 PLACE ONE FILM UNDER THE TONGUE EVERY DAY MAXIMUM DAILY DOSE = 1 PLACE ONE FILM UNDER THE TONGUE EVERY DA Y MAXIMUM DAILY DOSE = 1 SOLD: 10/24/2019 [facility] 200 mg 10/24/2019 12:00:00 AM EDT tablet 6 TAKE ONE TABLET BY MOUTH THREE TIMES A DAY FOR 2 DAYS TAKE ONE TABLET BY MOUTH THREE TIMES A DAY FOR 2 DAYS SOLD: 10/24/2019 [facility] 20 mg 10/01/2019 12:00:00 AM EDT capsule 30 TAKE ONE CAPSULE BY MOUTH EVERY DAY FOR ADHD MAXIMUM DAILY DOSE = ONE CAPSULE TAKE ONE CAPSULE BY MOUTH EVERY DAY FOR ADHD MAXIMUM DAILY DOSE = ONE CAPSULE SOLD: 10/01/2019 [facility] 8-2 mg 09/24/2019 12:00:00 AM EDT film 30 PL[address] ONE FILM UNDER THE TONGUE EVERY DAY MAXIMUM DAILY DOSE = ONE FILM PLACE ONE FILM UNDER THE TONGUE EVERY DAY MAXIMUM DAILY DOSE = ONE FILM SOLD: 09/25/2019 [facility] 20 mg 09/04/2019 12:00:00 AM EDT capsule 30 TAKE ONE CAPSULE BY MOUTH EVERY DAY FOR ADHD MAXIMUM DAILY DOSE = 1 CAPSULE TAKE ONE CAPSULE BY MOUTH EVERY DAY FOR ADHD MAXIMUM DAILY DOSE = 1 CAPSULE SOLD: 09/05/2019 [facility] 8-2 mg 08/31/2019 12:00:00 AM EDT film 30 PLACE ONE FILM UNDER THE TONGUE EVERY DAY MAXIMUM DAILY DOSE = [address] ONE FILM UNDER THE TONGUE EVERY DA Y MAXIMUM DAILY DOSE = 1 FILM SOLD: 09/03/2019 [facility] 8-2 mg 08/13/2019 12:00:00 AM EST film 21 [address]ACE ONE FILM UNDER THE TONGUE EVERY DAY MAXIMUM DAILY DOSE = [address] ONE FILM UNDER THE TONGUE EVERY DA Y MAXIMUM DAILY DOSE = 1 FILM SOLD: 08/14/2019 [facility] 20 mg 08/08/2019 12:00:00 AM EST capsule 30 TAKE ONE CAPSULE BY MOUTH EVERY DAY MAXIMUM DAILY DOSE = ONE CAPSULE TAKE ONE CAPSULE BY MOUTH EVERY DAY MAXI MUM DAILY DOSE = ONE CAPSULE SOLD: 08/08/2019 [facility] 8-2 mg 07/30/2019 12:00:00 AM EST film 14 PLACE ONE FILM UNDER THE TONGUE EVERY DAY MAXIMUM DAILY DOSE = ONE FILM PLACE ONE FILM UNDER THE TONGUE EVERY DAY MAXIMUM DAILY DOSE = ONE FILM SOLD: 07/30/2019 [facility] Tri-Lo-Haylee 28 Day Pack 0.18/0.215/0.25 mg-25 mcg NORG ESTIMATE-ETHINYL ESTRADIOL 07/21/2019 12:00:00 AM EST tablet 84 USE DIRECT ED USE DIRECTED SOLD: 10/21/2019 [facility] Tri-Lo-Haylee 28 Day Pack 0.18/0.215/0.25 mg-25 mcg NORG ESTIMATE-ETHINYL ESTRADIOL 07/21/2019 12:00:00 AM EST tablet 84 USE DIRECT ED USE DIRECTED SOLD: 07/30/2019 [facility] 8-2 mg 07/16/2019 12:00:00 AM EST film 14 PLACE ONE FILM UNDER THE TONGUE EVERY DAY MAXIMUM DAILY DOSE = [address] ONE FILM UNDER THE TONGUE EVERY DA Y MAXIMUM DAILY DOSE = 1 FILM SOLD: 07/17/2019 [facility] 20 mg 2019 12:00:00 AM EST capsule 30 TAKE ONE CAPSULE BY MOUTH EVERY DAY TAKE ONE CAPSULE BY MOUTH EVERY DAY SOLD: 2019 [facility] 20 mg 2019 12:00:00 AM EST capsule 30 TAKE ONE CAPSULE BY MOUTH EVERY DAY TAKE ONE CAPSULE BY MOUTH EVERY DAY SOLD: 07/30/2019 [facility] 20 mg 2019 12:00:00 AM EST capsule 30 TAKE ONE CAPSULE BY MOUTH EVERY DAY TAKE ONE CAPSULE BY MOUTH EVERY DAY SOLD: 09/03/2019 [facility] 20 mg 2019 12:00:00 AM EST capsule 30 TAKE ONE CAPSULE BY MOUTH EVERY DAY TAKE ONE CAPSULE BY MOUTH EVERY DAY SOLD: 10/08/2019 [facility] 20 mg 2019 12:00:00 AM EST capsule 30 TAKE ONE CAPSULE BY MOUTH EVERY DAY TAKE ONE CAPSULE BY MOUTH EVERY DAY SOLD: 11/06/2019 [facility] 8-2 mg 2019 12:00:00 AM EST film 14 PLACE ONE FILM UNDER THE TONGUE EVERY DAY MAXIMUM DAILY DOSE = [address] ONE FILM UNDER THE TONGUE EVERY DA Y MAXIMUM DAILY DOSE = 1 FILM SOLD: 2019 [facility] 8-2 mg 06/04/2019 12:00:00 AM EST film [address] ONE FILM UNDER THE TONGUE EVERY DAY MAXIMUM DAILY DOSE = [address] ONE FILM UNDER THE TONGUE EVERY DA Y MAXIMUM DAILY DOSE = 1 FILM SOLD: 06/05/2019 [facility] 8-2 mg 05/26/2019 12:00:00 AM EST film 8 PLACE ONE FILM UNDER THE TONGUE EVERY DAY MAXIMUM DAILY DOSE = [address] ONE FILM UNDER THE TONGUE EVERY DA Y MAXIMUM DAILY DOSE = 1 FILM SOLD: 05/26/2019 [facility] 40 mg 05/23/2019 12:00:00 AM EST capsule 30 TAKE ONE CAPSULE BY MOUTH EVERY DAY TAKE ONE CAPSULE BY MOUTH EVERY DAY SOLD: 06/23/2019 [facility] 40 mg 05/23/2019 12:00:00 AM EST capsule 30 TAKE ONE CAPSULE BY MOUTH EVERY DAY TAKE ONE CAPSULE BY MOUTH EVERY DAY SOLD: 07/17/2019 [facility] 40 mg 05/23/2019 12:00:00 AM EST capsule 30 TAKE ONE CAPSULE BY MOUTH EVERY DAY TAKE ONE CAPSULE BY MOUTH EVERY DAY SOLD: 05/23/2019 [facility] 8-2 mg 05/14/2019 12:00:00 AM EST film 8 TAKE 1 FILM UNDER THE TONGUE ONCE DAILY MAXIMUM DAILY DOSE=1 FILM TAKE 1 FILM UNDER THE TONGUE ONCE DAILY MAXIMUM DAILY DOSE=1 FILM SOLD: 05/16/2019 [facility] Fluoxetine 20 MG Oral Capsule fluoxetine 20 mg capsule fluox etine 20 mg capsule completed fluoxetine 20 MG Oral Capsule FADIA ([facility]) Phenazopyridine hydrochloride 200 MG Oral Tablet phena zopyridine 200 mg tablet phenazopyridine 200 mg tablet complete d phenazopyridine hydrochloride 200 MG Oral Tablet FADIA ([facility]) atomoxetine 40 MG Oral Capsule [Strattera] Strattera 4 0 mg capsule Strattera 40 mg capsule 1.00 {capsule} ORAL completed atomoxetine 40 MG Oral Capsule [Strattera] [facility] ([facility]) lisdexamfetamine dimesylate 20 MG Oral Capsule [Vyvans e] Vyvanse 20 mg capsule Vyvanse 20 mg capsule completed lisdexamfetamine dimesylate 20 MG Oral Capsule [Vyvanse] FADIA ([facility]) atomoxetine 40 MG Oral Capsule atomoxetine 40 mg capsu le atomoxetine 40 mg capsule completed atomoxetine 40 MG Oral Capsule FADIA ([facility]) NITROFURANTOIN, MACROCRYSTALS 25 MG / Ni trofurantoin, Monohydrate 75 MG Oral Capsule nitrofurantoin monohydrate/macrocrystals 100 mg capsule nitrofurantoin monohydrate/macrocrystals 100 mg capsule completed nitrofurantoin, macrocrystals 25 MG / nitrofurantoin, monohydrate 75 MG Oral Capsule [facility]ADIA ([facility]) Fluconazole 150 MG Oral Tablet fluconazole 150 mg tabl et fluconazole 150 mg tablet completed fluconazole 150 MG Oral Tablet FADIA ([facility]) Insurance Providers Payer name Policy type / Coverage type Policy ID Covered alliance party ID Covered alliance party's relationship to morfin Policy Morifn Plan Information ARIAN [id number] SP [id number] Medicaid S [id number] S [id number] Man[place] [id number] S [id number] Medicaid S [id number] Managed Care [place] [id number] S [id number] Managed Care [place] [id number] S [id number] ARIAN CARE [id number] S [id number] ARIAN CARE [id number] S [id number] Medicaid S [id number] Man[place] [id number] S [id number] SELF PAY O [id number] S [id number] [place] [id number] S [id number] MEDICAID [id number] ARIAN [id number] SP [id number] D Managed Care [place] P [id number] S [id number] D Managed Care [place] P [id number] S [id number] SELF PAY ONLY [id number] SP [id number] SELF PAY ONLY UNAVAILABLE SP UNAV AILABLE SELF PAY UNAVAILABLE UNAVAILA BLE [facility] [id number] SP [id number] ARIAN [id number] SP [id number] 100 [facility] COMMUNITY PLAN [id number] SP [id number] [facility] [id number] SP [id number] [facility] [id number] SP [id number] [facility] MEDICAID [id number] Alexandra [id number] MEDICAID [id number] SP [id number] [facility] Medicaid Medicaid Self MEDICAID PROF FEES [id number] S [id number] MEDICAID W [id number] S [id number] MEDICAID UNAVAILABLE S UNAVAILA BLE [id number] Problems, Conditions, and Diagnoses Code Display Name Description Problem Type Effective Dates Data Source(s) 48271258 Acute cystitis Acute Cystitis Problem 11/11/2019 12:00: 00 AM EDT FADIA ([facility]) [id number] Tobacco use and exposure - finding Tobacco Use a nd Exposure - Finding Problem 2019 12:00:00 AM EST [facility]ADIA ([facility]) Surgeries/Procedures Procedure Description Date Indications Data Source(s) [facility] STI / H 01/28/2020 12:00:00 AM EDT - 01/28/2020 12:00:00 AM EDT [facility] ([facility]) [facility]. Other 01/28/2020 12:00:00 AM EDT - 2019 12:00:00 AM EDT [facility] ([facility]) [facility].Svc. Contraceptive 01/28/2020 12 :00:00 AM EDT - 01/28/2020 12:00:00 AM EDT [facility] ([facility]) OFFICE VISIT, EST 01/28/2020 12:00:00 AM EDT - 020 12:00:00 AM EDT [facility] ([facility]) Social History Code Duration Value Status Description Data Source(s ) Smoking 04/23/2020 12:00:00 AM EST Heavy tobacco smoker comple ariella Heavy tobacco smoker [facility]) 01/28/2020 12:00:00 AM EDT [id number] completed [facility] ([facility]) Vital Signs ID Date Data Source UNK Name Value Range Interpretation Code Description Data Source(s) Body weight 1826 [oz_av] 1826 [oz_av] FADIA ([facility]) Systolic blood pressure 120 mm[Hg] 120 mm[Hg] A [facility]) Body mass index (BMI) [Ratio] 22.3 kg/m2 22.3 k g/m2 [place] ([facility]) Body height 60 [in_i] 60 [in_i] FADIA ([facility]) Diastolic blood pressure 87 mm[Hg] 87 mm[Hg] FADIA ([facility]) Body weight 1744 [oz_av] 1744 [oz_av] FADIA ([facility]) Systolic blood pressure 114 mm[Hg] 114 mm[Hg] A [facility] ([facility]) Body height 60 [in_i] 60 [in_i] FADIA ([facility]) Diastolic blood pressure 74 mm[Hg] 74 mm[Hg] FADIA ([facility]) Body weight 1728 [oz_av] 1728 [oz_av] FADIA ([facility]) Systolic blood pressure 120 mm[Hg] 120 mm[Hg] A [facility] ([facility]) Body height 60 [in_i] 60 [in_i] FADIA ([facility]) Diastolic blood pressure 55 mm[Hg] 55 mm[Hg] FADIA ([facility]) Body weight 1760 [oz_av] 1760 [oz_av] FADIA ([facility]) Systolic blood pressure 122 mm[Hg] 122 mm[Hg] A THE[place] ([facility]) Body height 60 [in_i] 60 [in_i] FADIA ([facility]) Diastolic blood pressure 80 mm[Hg] 80 mm[Hg] FADIA ([facility]) Body weight 1778.08 [oz_av] 1778.08 [oz_av] A[facility] ([facility]) Systolic blood pressure 127 mm[Hg] 127 mm[Hg] A [facility] ([facility]) Body height 60 [in_i] 60 [in_i] FADIA ([facility]) Diastolic blood pressure 85 mm[Hg] 85 mm[Hg] FADIA ([facility]) Body weight 1760 [oz_av] 1760 [oz_av] FADIA ([facility]) Systolic blood pressure 138 mm[Hg] 138 mm[Hg] [facility] Body height 60 [in_i] 60 [in_i] FADIA ([facility]) Diastolic blood pressure 85 mm[Hg] 85 mm[Hg] FADIA ([facility]) Body weight 1810.08 [oz_av] 1810.08 [oz_av] ATH SHIRA ([facility]) Systolic blood pressure 151 mm[Hg] 151 mm[Hg] [facility] Body height 60 [in_i] 60 [in_i] FADIA ([facility]) Diastolic blood pressure 103 mm[Hg] 103 mm[Hg] FADIA ([facility]) Body weight 1840 [oz_av] 1840 [oz_av] FADIA ([facility]) Systolic blood pressure 133 mm[Hg] 133 mm[Hg] [facility] Body height 60 [in_i] 60 [in_i] FADIA ([facility]) Diastolic blood pressure 84 mm[Hg] 84 mm[Hg] FADIA ([facility]) Body weight 1840 [oz_av] 1840 [oz_av] AFDIA ([facility]) Systolic blood pressure 123 mm[Hg] 123 mm[Hg] A [facility] ([facility]) Body height 60 [in_i] 60 [in_i] FADIA ([facility]) Diastolic blood pressure 81 mm[Hg] 81 mm[Hg] FADIA ([facility]) Body weight 1860 [oz_av] 1860 [oz_av] FADIA ([facility]) Systolic blood pressure 143 mm[Hg] 143 mm[Hg] A [facility] ([facility]) Body height 60 [in_i] 60 [in_i] FADIA ([facility]) Diastolic blood pressure 91 mm[Hg] 91 mm[Hg] FADIA ([facility]) Body weight 1856 [oz_av] 1856 [oz_av] FADIA ([facility]) Systolic blood pressure 142 mm[Hg] 142 mm[Hg] [facility]) Body height 60 [in_i] 60 [in_i] FADIA ([facility]) Diastolic blood pressure 93 mm[Hg] 93 mm[Hg] FADIA ([facility]) Patient Treatment Plan of Care Planned Activity Planned Date Details Description Data Source (s) Mjv-Al-Swvteqyx 0.18 mg/0.215 mg/0.25 mg-25 mcg tablet 01/28/2020 12:00:00 AM EDT [place] ([facility]) lisdexamfetamine dimesylate 20 MG Oral Capsule [Vyvanse] FADIA ([facility]) Phenazopyridine hydrochloride 200 MG Oral Tablet FADIA ([facility]) NITROFURANTOIN, MACROCRYSTALS 25 MG / Ni trofurantoin, Monohydrate 75 MG Oral Capsule FADIA ([facility]) Fluoxetine 20 MG Oral Capsule FADIA ([facility]) Fluconazole 150 MG Oral Tablet FADIA ([facility]) atomoxetine 40 MG Oral Capsule FADIA ([facility]) atomoxetine 40 MG Oral Capsule [Strattera] [facility] ([facility])
--- OUTSIDE RECORDS SUMMARY | 2020-07-14 18:52 | CCD ---
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 Active Not available fluconazole 150 mg tablet Completed 2019 fluoxetine 20 mg capsule Completed 020 fluoxetine 40 mg capsule Active Not jennifer ilable Linzess 145 mcg capsule Take 1 capsule every day by oral route. Active Not available nitrofurantoin monohydrate/macrocrystals 100 mg capsule Complete d 04/19/2020 phenazopyridine 200 mg tablet Completed Tri-Lo-Haylee 0.18/0.215/0.25 mg-25 mcg tablet Active Not available Vyvanse 20 mg capsule Completed 04/19/2020 Vyvanse 30 mg capsule Active Not availa ble Problems Name Status Onset Date Source Dysthymia Active 05/08/2017 History Herpes Simplex Active 06/04/2017 History Disorder of Upper Respiratory System Active 06/04/2017 History Body Measurement Finding Active 06/04/2017 History Anemia Active 10/03/2018 History Chronic Constipation Active 10/03/[address] Concept Active 10/03/2018 History Clinical Finding Active 10/03/[address] Concept Active 10/03/2018 History Nicotine Dependence Active 01/15/2019 History Eruption Active 01/15/2019 History Dysuria Active 01/15/2019 History Increased Frequency of Urination Active 01/15/2019 History Combined Oral Contraceptive - Use Active 01/23/2019 History Emotional State Finding Active 01/23/2019 History 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 Past Encounters 04/19/2020 Administration of Influenza Vaccine; Chronic Constipation; Nondependent Opioid Abuse in Remission Ortega Pedro MD: [address] [place] [address], Ph. Social History Tobacco Smoking Status Heavy Tobacco Smoker (1/2 PPD) Vaccine List Vaccine Type influenza, injectable, quadrivalent, pre servative free 04/19/20200.5 mL Plan of Care Reminders Provider Appointments None recorded. Lab None recorded. Referral None recorded. Procedures None recorded. Surgeries None recorded. Imaging None recorded. Vitals 04/19/2020 11:00AM MAT Height Weight BMI Blood Pressure 60 in 114 lbs 2 oz 22.3 kg/m2 120/87 mm[Hg] 02/02/2020 Height Weight Blood Pressure 60 in 109 lbs 114/74 mm[Hg] 01/05/2020 Height Weight Blood Pressure 60 in 108 lbs 120/55 mm[Hg] 11/11/2019 Height Weight Blood Pressure 60 in 110 lbs 122/80 mm[Hg] 09/24/2019 Height Weight Blood Pressure 60 in 111 lbs 2.08 oz 127/85 mm[Hg] 08/27/2019 Height Weight Blood Pressure 60 in 110 lbs 138/85 mm[Hg] 07/30/2019 Height Weight Blood Pressure 60 in 113 lbs 2.08 oz 151/103 mm[Hg] 2019 Height Weight Blood Pressure 60 in 115 lbs 133/84 mm[Hg] 06/04/2019 Height Weight Blood Pressure 60 in 115 lbs 123/81 mm[Hg] 05/28/2019 Height Weight Blood Pressure 60 in 116 lbs 4 oz 143/91 mm[Hg] 05/21/2019 Height Weight Blood Pressure 60 in 116 lbs 142/93 mm[Hg] 05/14/2019 Height Weight Blood Pressure 60 in 118 lbs 2.08 oz 136/82 mm[Hg] 01/23/2019 Height Weight Blood Pressure 60 in 99 lbs 129/103 mm[Hg] 01/15/2019 Height Weight Blood Pressure 60 in 99 lbs 124/82 mm[Hg] 10/03/2018 Height Weight Blood Pressure 60 in 99 lbs 123/78 mm[Hg]
--- OUTSIDE RECORDS SUMMARY | 2020-07-14 18:52 | CCD | Continuity of Care Document ---
Author Author [facility] Organization [facility] Address Unknown Phone Unavailable Care Team Providers Care Director Advanced Name Role Phone Priscila Sharma Unavailable Unavailable Allergies, Adverse Reactions, Alerts Substance Reaction Status Criticality NITROFURANTOIN MACROCRYSTALLINE Active No Information nitrofurantoin Active No Information ciprofloxacin Active No Information Medications Medication Instructions Dosage Effective Dates (start - stop) Sta tus Comments Fis-Zt-Efflpmfy 0.18 mg/0.215 mg/0.25 mg-25 mcg tablet take 1 tablet by oral route every day 1.00 tablet - Active ORTHO TRI-CYCLEN LO TABLET TAKE ONE TABLET BY MOUTH EVERY DAY - Active Vyvanse 30 mg capsule take 1 capsule by oral route every da y in the morning 30 MG - Active Suboxone 8 mg-[address] 1 film by sub lingual route every day allow to dissolve slowly in mouth without chewing or swallowing 1.00 film - Active Problems Condition Effective Dates (start - stop) Clinical Status C omments Encounter for oth general cnsl and advice on contraception Encounter for surveillance of contraceptive pills Human immunodeficiency virus [HIV] counseling Encntr screen for infections w sexl mode of transmiss High risk heterosexual behavior Other sex counseling Human immunodeficiency virus [HIV] counseling Encounter for oth general cnsl and advice on contraception Other specified noninflammatory disorders of vagina Other sex counseling Encounter for prescription of emergency contraception Encounter for test, result negative Encntr screen for infections w sexl mode of transmiss High risk heterosexual behavior Encounter for initial prescription of contraceptive pills Encounter for preprocedural laboratory examination Encounter for oth general cnsl and advice on contraception Encounter for test, result negative Dysuria Other specified noninflammatory disorders of vagina Encounter for oth general cnsl and advice on contraception Encounter for test, result negative Human immunodeficiency virus [HIV] counseling Encntr for drapery hanger exam (general) (routine) w/o abn findings Encounter for screening for malignant neoplasm of cervix Encntr screen for infections w sexl mode of transmiss High risk heterosexual behavior Encounter for initial prescription of contraceptive pills Procedures Procedure Date No Information Results Test Name Date and Time Measure Units Reference Range Abnormal Flag St atus Comments No Information Advance Directives Directive Yes / No Effective Date File Name No Information Encounters Encounter Description Practice Location Reason(s) For Visit Diagnose s Date Provider Providers Copied on Encounter [facility], [address] [place] [address], [address] [place] [address], tel:[phone] [facility] [place] No Information Corbin Francois. [address] [place] [address], [address] [place] [address], . tel:[phone] [facility], [address] [place] [address], [address] [place] [address], tel:[phone] [facility] [place] Encounter for oth g eneral cnsl and advice on contraceptionEncounter for surveillance of contraceptive pillsHuman immunodeficiency virus [HIV] counseling Kostas Rojas. [address] [place] [address], [id number], . tel:[phone] Referring Provider: Crystal Kenyon, [address] [place] [address], [id number]. tel:[phone] [facility], [address] [place] [address], [address] [place] [address], tel:[phone] [facility] [place] Encntr screen for i nfections w sexl mode of transmissHigh risk heterosexual behaviorOther sex counselingHuman immunodeficiency virus [HIV] counselingEncounter for oth general cnsl and advice on contraceptionOther specified noninflammatory disorders of vagina Nurys Francois. [address] [place] [address], [id number], . tel:[phone] Referring Provider: Priscila Nuno, [address] [place] [address], [id number]. tel:[phone] [facility], [address] [place] [address], [id number], [place] tel:[phone] [facility] [place] No Information W joe Caballero. [address], [place], [id number], [place]. tel:[phone] [facility] [place], [address] [place] [address], [id number], [place] tel:[phone] [facility] [place] Other sex counselin gEncounter for prescription of emergency contraceptionEncounter for test, result negativeEncntr screen for infections w sexl mode of transmissHigh risk heterosexual behaviorEncounter for initial prescription of contraceptive pillsEncounter for preprocedural laboratory examinationEncounter for oth general cnsl and advice on contraception Crosby Federico. [address] [place] [address], [id number], [place]. tel:[phone] Referring Provider: Federico Crosby, [address] [place] [address], [id number]. tel:[phone] [facility] [place], [address] [place] [address], [id number], [place] tel:[phone] [facility] [place] Encounter for pregn anjelica test, result negativeDysuriaOther specified noninflammatory disorders of vaginaEncounter for oth general cnsl and advice on contraception Rosa Isela Anderson. [address] [place] [address], [id number]. tel:[phone] Referring Provider: Anneliese Natarajan, [address] [place] [address], [id number]. tel:[phone] [facility] [place], [address] [place] [address], [id number], [place] tel:[phone] [facility] [place] Encounter for pregn anjelica test, result negativeHuman immunodeficiency virus [HIV] counselingEncntr for drapery hanger exam (general) (routine) w/o abn findingsEncounter for screening for malignant neoplasm of cervixEncntr screen for infections w sexl mode of transmissHigh risk heterosexual behaviorEncounter for initial prescription of contraceptive pills Tania Plata. [address], [place], [id number]. tel:[phone] Referring Provider: Sherlyn Marin, [address], [place], [id number]. tel:[phone] Family History Family Member Diagnosis Age At Onset 1st degree relative No hx of coronary heart disease (female <65, male <55) 1st degree relative No hx of venous thromboembolism 1st degree relative No hx of cancer of breast, colon, endome trium or ovary Immunizations Vaccine Date Status Comments No Information Payers Payer name Insurance type Covered green party ID Authorization(s ) No Information Social History Type Description Quantity Date Captured Comments Alcohol Use Details Unknown Caffeine Use Details Unknown Tobacco Use Status Smoking Status Heavy tobacco smoker Sex Female Vital Signs Date / Time: Height Weight BMI Pulse Rate Blood Pressure Temperatu re Respiratory Rate Body Surface Area Head Circumference BMI percentile Pulse Ox In haled Ox No Information Chief Complaint And Reason For Visit No Information Reason For Referral Reason For Referral No Information Plan Of Treatment Date Type Action Status Goal Tobacco cessation counseling com pleted Goal Tobacco cessation counseling com pleted Goal Tobacco cessation counseling com pleted History Of Present Illness Encounter Date Complaint History Of Present I llness No Information Functional Status Date Functional Assessment No Information Medications Administered Medication Instructions Dosage Effective Dates (start - stop) Sta tus Comments No Information Instructions Date Instruction Additional Informati on No Information Assessments Type Assessment Date No Information Goals Health Concern Goal Type Priority Status Date No Information Medical Equipment Description Device Coram Device Identifier Effective Kiran es (start - stop) Status No Information Mental Status Date Cognitive Assessment No Information Health Concerns Observation Date No Information Concern Status Date No Information Physical Examination Exam Findings Details No Information
[2020-07-14] MEDS ORDERED: METH10TA2 PO (18:55)
[2020-07-14] MEDS ORDERED: NORG1TAB33 PO (18:55)
[2020-07-14] MEDS ORDERED: FLUO40CA PO (18:55)
[2020-07-14] MEDS ORDERED: VYVA30CA4 PO (18:55)
[2020-07-14 20:08] LABS: BASO # 0.1 10^3/uL (0.0-0.2); BASO % 0.6 % (0.0-1.0); EOS # 0.1 10^3/uL (0.0-0.5); EOS % 0.9 % (0.0-3.0); HEMATOCRIT 37.6 % (36.0-47.0); HEMOGLOBIN 12.6 g/dl (12.0-15.5); LYMPH # 2.2 10^3/uL (1.5-5.0); LYMPH % 20.4 % (24.0-44.0); MEAN CORPUSCULAR HEMOGLOBIN 29.2 pg (27.0-33.0); MEAN CORPUSCULAR HGB CONC 33.5 g/dl (32.0-36.5); MONO # 0.6 10^3/uL (0.0-0.8); MONO % 5.2 % (0.0-5.0); NEUTROPHILS # 7.8 10^3/uL (1.5-8.5); NEUTROPHILS % 72.7 % (36.0-66.0); PLATELET COUNT, AUTOMATED 392 10^3/uL (150-450); RED BLOOD COUNT 4.32 10^6/uL (4.00-5.40); WHITE BLOOD COUNT 10.8 10^3/uL (4.0-10.0)
[2020-07-14 20:28] LABS: ALBUMIN 3.5 GM/DL (3.2-5.2); ALT/SGPT 22 U/L (12-78); BILIRUBIN,DIRECT < 0.1 MG/DL (0.0-0.2); BILIRUBIN,TOTAL 0.2 MG/DL (0.2-1.0); LIPASE 60 U/L (73-393); TOTAL PROTEIN 7.3 GM/DL (6.4-8.2)
--- OUTSIDE RECORDS SUMMARY | 2020-07-14 20:38 | CCD ---
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 Care Patient Scheduling Coordinator Name Role Phone Beto Cam MD Unavailable [...] Unavailable Tutu, Beto Thompson MD Unavailable Unavailable Beto Cam MD Unavailable [...] Crystal Unavailable Unavailable Kenyon, Crystal Unavailable Unavailable Shandaken, J Priscila PA Unavailable Unavailable Shandaken, J Priscila PA Unavailable Unavailable Shandaken, J Priscila PA Unavailable Unavailable Shandaken, J Priscila PA Unavailable Unavailable Shandaken, J Priscila PA Unavailable Unavailable Shandaken, J Priscila PA Unavailable Unavailable Shandaken, J Priscila PA Unavailable Unavailable Shandaken, J Priscila PA Unavailable Unavailable Shandaken, J Priscila PA Unavailable Unavailable Shandaken, J Priscila PA Unavailable Unavailable Shandaken, J Priscila PA Unavailable Unavailable Shandaken, J Priscila PA Unavailable Unavailable Shandaken, J Priscila PA Unavailable Unavailable Shandaken, J Priscila PA Unavailable Unavailable Shandaken, J Priscila PA Unavailable Unavailable Shandaken, J Priscila PA Unavailable Unavailable Shandaken, J Priscila PA Unavailable Unavailable Shandaken, J Priscila PA Unavailable Unavailable Shandaken, J Priscila PA Unavailable Unavailable Shandaken, J Priscila PA Unavailable Unavailable Shandaken, J Priscila PA Unavailable Unavailable Shandaken, J Priscila PA Unavailable Unavailable Manjeet, Mikala INTERACTIVE DEVELOPER INTERACTIVE DEVELOPER Unavailable Unavailable Manjeet, A Mikala INTERACTIVE DEVELOPER Unavailable Unavailable Manjeet, A Mikala INTERACTIVE DEVELOPER Unavailable Unavailable Manjeet, A Mikala INTERACTIVE DEVELOPER Unavailable Unavailable Manjeet, A Mikala INTERACTIVE DEVELOPER Unavailable Unavailable Manjeet, A Mikala INTERACTIVE DEVELOPER Unavailable Unavailable Manjeet, A Mikala INTERACTIVE DEVELOPER Unavailable Unavailable Manjeet, A Mikala INTERACTIVE DEVELOPER Unavailable Unavailable Manjeet, A Mikala INTERACTIVE DEVELOPER Unavailable Unavailable Manjeet, A Mikala INTERACTIVE DEVELOPER Unavailable Unavailable Manjeet, A Mikala INTERACTIVE DEVELOPER Unavailable Unavailable Manjeet, A Mikala INTERACTIVE DEVELOPER Unavailable Unavailable Manjeet, A Mikala INTERACTIVE DEVELOPER Unavailable Unavailable Manjeet, A Mikala INTERACTIVE DEVELOPER Unavailable Unavailable Manjeet, A Mikala INTERACTIVE DEVELOPER Unavailable Unavailable Manjeet, A Mikala INTERACTIVE DEVELOPER Unavailable Unavailable Manjeet, A Mikala INTERACTIVE DEVELOPER Unavailable Unavailable Manjeet, A Mikala INTERACTIVE DEVELOPER Unavailable Unavailable Manjeet, A Mikala INTERACTIVE DEVELOPER Unavailable Unavailable Manjeet, A Mikala INTERACTIVE DEVELOPER Unavailable Unavailable Manjeet, A Mikala INTERACTIVE DEVELOPER Unavailable Unavailable Manjeet, A Mikala INTERACTIVE DEVELOPER Unavailable Unavailable Manjeet, A Mikala INTERACTIVE DEVELOPER Unavailable Unavailable Manjeet, A Mikala INTERACTIVE DEVELOPER Unavailable Unavailable Manjeet, A Mikala INTERACTIVE DEVELOPER Unavailable Unavailable Manjeet, A Mikala INTERACTIVE DEVELOPER Unavailable Unavailable Manjeet, A Mikala INTERACTIVE DEVELOPER Unavailable Unavailable Manjeet, A Mikala INTERACTIVE DEVELOPER Unavailable Unavailable Re-disclosure Warning The records that [...] is protected by Article 27-F of the [facility] Public Health law. If you continue you may have access to information: Regarding HIV / AIDS; Provided by facilities licensed or operated by the [facility] Office of Mental Health; or Provided by the [facility] Office for People With Developmental Disabilities. If such information is present, then the following [facility] mandated warning applies: This information has [...] law may result in a fine or fpc sentence or both. A general authorization for [...] Indications Data Source(s ) Attender: Priscila MEJIA [place] 11/2019 08:19:00 AM EST - 04/23/2020 08:19:00 AM EST [facility] ([facility]) Outpatient Attender: Ortega Pedro MD 04/19/2020 11:16:01 AM EST [facility] Ortega Pedro MD: [address] [place] [phone], Ph. Attender: Ortega Pedro MD [facility] Medical 04/19/2020 12:00:00 AM EST [facility] ([facility]) Attender: Crystal Chavis 04/01 01:20:00 PM EDT - 04/01/2020 01:20:00 PM EDT [facility] ([facility]) Outpatient Attender: Ortega Pedro MD FP 04/01/2020 10:19:01 AM EDT [facility] Outpatient Attender: Ortega Pedro MD FP 03/30/2020 09:50:01 AM EDT [facility] Outpatient Attender: Ortega Pedro MD FP 03/29/2020 01:22:02 PM EDT [facility] Outpatient Attender: Ortega Pedro MD FP 03/26/2020 11:40:02 AM EDT [facility] Outpatient Attender: Ortega Pedro MD FP 03/26/2020 10:50:00 AM EDT [facility] Outpatient Attender: Ortega Pedro MD FP 03/22/2020 03:38:02 PM EDT [facility] Outpatient Attender: Ortega Pedro MD FP 03/22/2020 11:18:00 AM EDT [facility] Outpatient Attender: Ortega Pedro MD FP 03/10/2020 11:31:02 AM EDT [facility] Outpatient Attender: Ortega Pedro MD FP 03/06/2020 10:16:01 AM EDT [facility] Outpatient Attender: Ortega Pedro MD FP 03/03/2020 05:03:00 PM EDT [facility] Outpatient Attender: Ortega Pedro MD FP 03/02/2020 11:45:00 AM EDT [facility] Outpatient Attender: Ortega Pedro MD FP 03/02/2020 11:44:02 AM EDT [facility] Outpatient Attender: Ortega Pedro MD FP 03/01/2020 02:14:00 PM EDT [facility] Outpatient Attender: Ortega Pedro MD FP 02/17/2020 10:08:00 AM EDT [facility] Outpatient Attender: Ortega Pedro MD FP 02/10/2020 10:10:00 AM EDT [facility] Outpatient Attender: Ortega Pedro MD FP 02/03/2020 03:25:02 PM EDT [facility] Outpatient Attender: Ortega Pedro MD FP 02/02/2020 01:43:02 PM EDT [facility] Outpatient Attender: Ortega Pedro MD FP 02/02/2020 01:42:02 PM EDT [facility] Outpatient Attender: Ortega Pedro MD FP 02/02/2020 11:29:01 AM EDT [facility] Outpatient Attender: Ortega BIGGS 02/02/2020 11:08:01 AM EDT [facility] Attender: BONITA Ennis 01/28/2020 10:45:00 AM EDT - 01/28/2020 10:45:00 AM EDT [facility] ([facility]) Outpatient Attender: Ortega Pedro MD FP 01/28/2020 10:18:00 AM EDT [facility] OutpatientOFFICE VISIT, EST Attender: Crystal Riverarison ROBERTO Dane [place] 01/28/2020 08:40:00 AM EDT - 01/28/2020 08:40:00 AM EDT Human immunodeficiency virus [HIV] counselingEncounter for surveillance of contraceptive pillsEncounter for oth general cnsl and advice on contraception [facility] ([facility]) Human immunodeficiency virus [HIV] couns eling Encounter for surveillance of contracept elle pills Encounter for oth general cnsl and advic e on contraception Attender: Donna Cam MD PP[facility] [place] 01:45:00 PM EDT - 01/15/2020 01:45:00 PM EDT [facility] ([facility]) Outpatient Attender: Ortega Pedro MD FP 01/06/2020 03:21:00 PM EDT [facility] Outpatient Attender: Ortega Pedro MD FP 01/05/2020 10:53:01 AM EDT [facility] Outpatient Attender: Ortega Pedro MD FP 01/02/2020 02:27:00 PM EDT [facility] Outpatient Attender: Ortega Pdero MD FP 01/02/2020 08:42:01 AM EDT [facility] Outpatient Attender: Ortega BIGGS 12/29/2019 11:52:01 AM EDT [facility] Outpatient Attender: Ortega BIGGS 12/17/2019 08:10:01 AM EDT [facility] Outpatient Attender: Ortega BIGGS 12/17/2019 08:09:01 AM EDT [facility] Outpatient Attender: Ortega BIGGS 12/17/2019 08:08:02 AM EDT [facility] Outpatient Attender: Ortega Pedro MD FP 12/11/2019 10:40:01 AM EDT [facility] Outpatient Attender: Ortega Pedro MD FP 12/08/2019 02:55:01 PM EDT [facility] Outpatient Attender: Ortega Pedro MD FP 12/03/2019 03:43:02 PM EDT [facility] Outpatient Attender: Ortega Pedro MD FP 11/13/2019 07:58:01 AM EDT [facility] Outpatient Attender: CLARK WESTFALLP FP 11/06/2019 09:49:01 A M EDT [facility] Outpatient Attender: Mikala WESTFALLP FP 11/04/2019 09:3 4:00 AM EDT [facility] Outpatient Attender: Mikala WESTFALLP FP 10/22/2019 10:0 1:01 AM EDT [facility] Outpatient Attender: CLARK WESTFALLP FP 10/20/2019 02:37:00 P M EDT [facility] Outpatient Attender: CLARK WESTFALLP FP 09/24/2019 11:23:01 A M EDT [facility] Outpatient Attender: CLARK WESTFALLP FP 09/23/2019 02:56:01 P M EDT [facility] Outpatient Attender: CLARK WESTFALLP FP 08/18/2019 12:57:00 P [facility] Outpatient Attender: CLARK WESTFALLP FP 08/11/2019 03:09:00 P M [facility] Outpatient Attender: CLARK WESTFALLP FP 07/30/2019 10:22:01 A [facility] Outpatient Attender: CLARK WESTFALLP FP 07/16/2019 03:20:00 P [facility] Outpatient Attender: CLARK WESTFALLP FP 2019 10:49:00 A [facility] Outpatient Attender: CLARK WESTFALLP FP 2019 10:48:00 A [facility] Outpatient Attender: CLARK WESTFALLP FP 2019 10:47:00 A [facility] Outpatient Attender: CLARK RODAS FP 2019 10:34:01 A [facility] Outpatient Attender: CLARK WESTFALLP FP 2019 10:25:[address] [facility] Outpatient Attender: CLARK Manjeet [facility] 2019 10:23:[address] [facility] Outpatient Attender: CLARK Manjeet [facility] 2019 10:22:[address] [facility] Outpatient Attender: Mikala Burroughs [facility] 06/10/2019 07:4 8:00 AM [facility] Outpatient Attender: CLARK Manjeet [facility] 06/04/2019 10:24:[address] [facility] Outpatient Attender: INTERACTIVE DEVELOPER Manjeet [facility] 06/04/2019 10:09:[address] [facility] Outpatient Attender: CLARK Manjeet [facility] 05/28/2019 02:00:[address] [facility] Outpatient Attender: CLARK Manjeet [facility] 05/28/2019 08:39:[address] [facility] Attender: Priscila CARLTON [facility] [place] 05/18 10:45:00 AM [facility] - 05/27/2019 10:45:00 AM [facility] Other specified noninflammatory disorder s of vaginaEncounter for oth general cnsl and advice on contraceptionHuman immunodeficiency virus [HIV] counselingOther sex counselingHigh risk heterosexual behaviorEncntr screen for infections w sexl mode of transmiss [facility] ([facility]) Other specified noninflammatory disorder s of vagina Encounter for oth general cnsl and advic e on contraception Human immunodeficiency virus [HIV] couns eling Other sex counseling High risk heterosexual behavior Encntr screen for infections w sexl mode of transmiss Outpatient Attender: CLARK Burroughs [facility] 05/26/2019 01:22:[address] [facility] Outpatient Attender: Mikalashannen Burroughs [facility] 05/26/2019 09:2 2:02 AM [facility] Outpatient Attender: CLARK Burroughs [facility] 05/21/2019 10:01:[address] [facility] Outpatient Attender: INTERACTIVE DEVELOPERYong Burroughs [facility] 05/16/2019 02:27:[address] [facility] Immunizations Vaccine Date Status Description Data Source(s) New in 2011. IIV4 04/19/2020 12:20:00 PM EST completed 0.5 mL [facility] ([facility]) Medications Medication Brand Name Start Date Product [...] DAILY DOSE = 1 FILM SOLD: 03/07/2020 [facility] 30 mg 02/10/2020 12:00:00 AM EDT [...] MAXIMUM DAILY DOSE = 1 SOLD: 02/05/2020 [facility] Tri-Lo-Haylee 28 Day Pack 0.18/0.215/0.25 mg-25 mcg NORG ESTIMATE-ETHINYL ESTRADIOL 01/28/2020 12:00:00 AM EDT tablet 84 TAKE ONE TABLET BY MOUTH EVERY DAY TAKE ONE TABLET BY MOUTH EVERY DAY SOLD: 01/30/2020 [facility] Peh-Ox-Slczqvlm 0.18 mg/0.215 mg/0.25 mg-25 mcg tablet {7 (ethinyl estradiol 0.025 MG / norgestimate 0.18 MG Oral Tablet) / 7 (ethinyl estradiol 0.025 MG / norgestimate 0.215 MG Oral Tablet) / 7 (ethinyl estradiol 0.025 MG / norgestimate 0.25 MG Oral Tablet) / 7 (inert ingredients 1 MG Oral Tablet) } Pack 01/28/2020 12:00:00 AM EDT 1.00 {tablet} ORAL acti ve Otv-Kf-Gsuyadzj 28 Day Pack [facility] ([facility]) 30 mg 01/08/2020 12:00:00 AM [...] completed fluoxetine 20 MG Oral Capsule [facility] ([facility]) Phenazopyridine hydrochloride 200 MG Oral Tablet phena zopyridine 200 mg tablet phenazopyridine 200 mg tablet complete d phenazopyridine hydrochloride 200 MG Oral Tablet [facility] ([facility]) atomoxetine 40 MG Oral Capsule [Strattera] Strattera 4 0 mg capsule Strattera 40 mg capsule 1.00 {capsule} ORAL completed atomoxetine 40 MG Oral Capsule [Strattera] [facility] ([facility]) lisdexamfetamine dimesylate 20 MG Oral Capsule [Vyvans e] Vyvanse 20 mg capsule Vyvanse 20 mg capsule completed lisdexamfetamine dimesylate 20 MG Oral Capsule [Vyvanse] [facility] ([facility]) atomoxetine 40 MG Oral Capsule atomoxetine 40 mg capsu le atomoxetine 40 mg capsule completed atomoxetine 40 MG Oral Capsule [facility] ([facility]) NITROFURANTOIN, MACROCRYSTALS 25 MG / Ni trofurantoin, Monohydrate 75 MG Oral Capsule nitrofurantoin monohydrate/macrocrystals 100 mg capsule nitrofurantoin monohydrate/macrocrystals 100 mg capsule completed nitrofurantoin, macrocrystals 25 MG / nitrofurantoin, monohydrate 75 MG Oral Capsule [facility] ([facility]) Fluconazole 150 MG Oral Tablet fluconazole 150 mg tabl et fluconazole 150 mg tablet completed fluconazole 150 MG Oral Tablet [facility] ([facility]) Insurance Providers Payer name Policy type / Coverage type Policy ID Covered republican ID Covered republican's relationship to morfin Policy Morfin Plan Information ARIAN [id number] SP [id number] Medicaid S [id number] S [id number] Man[place] [id number] S [id number] Medicaid S [id number] Managed Care [place] P [id number] S [id number] Managed Care [place] P [id number] S [id number] ARIAN CARE [id number] S [id number] ARIAN CARE [id number] S [id number] Medicaid S [id number] S [id number] Managed Care [place] P [id number] S [id number] SELF PAY O [id number] S [id number] [place] CARE [place] O [id number] S [id number] MEDICAID [id number] ARIAN [id number] SP [id number] D Managed Care [place] P [id number] S [id number] D Managed Care [place] P [id number] S [id number] SELF PAY ONLY [id number] SP [id number] SELF PAY ONLY UNAVAILABLE SP UNAV AILABLE SELF PAY UNAVAILABLE UNAVAILA BLE [id number] [id number] SP [id number] ARIAN [id number] SP [id number] 100 [facility] [id number] SP [id number] [facility] [id number] SP [id number] [facility] COMMUNITY PLAN [facility] [id number] SP [id number] [facility] MED[facility] [id number] Alexandra [id number] MEDICAID [id number] SP [id number] [facility] Medicaid Medicaid Self MEDICAID PROF FEES [id number] S [id number] MEDICAID W [id number] S [id number] MEDICAID UNAVAILABLE S UNAVAILA BLE [id number] Problems, Conditions, and Diagnoses Code Display Name Description Problem Type Effective Dates Data Source(s) 76252780 Acute cystitis Acute Cystitis Problem 11/11/2019 12:00: 00 AM EDT [facility] ([facility]) [id number] Tobacco use and exposure - finding Tobacco Use a nd Exposure - Finding Problem 2019 12:00:00 AM EST [facility] ([facility]) Surgeries/Procedures Procedure Description Date Indications Data Source(s) CVR Hydro Sprayer Operator.Svc. 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 Contraceptive 01/28/2020 12 :00:00 AM EDT - 01/28/2020 12:00:00 AM EDT [facility] ([facility]) OFFICE VISIT, EST 01/28/2020 12:00:00 AM EDT - 020 12:00:00 AM EDT [facility] ([facility]) Social History Code Duration Value Status Description Data Source(s ) Smoking 04/23/2020 12:00:00 AM EST Heavy tobacco smoker comple ariella Heavy tobacco [facility]oker [facility] 01/28/2020 12:00:00 AM EDT [id number] completed [facility] ([facility]) Vital Signs ID Date Data Source UNK Name Value Range Interpretation Code Description Data Source(s) Body weight 1826 [oz_av] 1826 [oz_av] [facility] ([facility]) Systolic blood pressure 120 mm[Hg] 120 mm[Hg] A [facility]) Body mass index (BMI) [Ratio] 22.3 kg/m2 22.3 k g/m2 [place] ([facility]) Body height 60 [in_i] 60 [in_i] [facility] ([facility]) Diastolic blood pressure 87 mm[Hg] 87 mm[Hg] [facility] ([facility]) Body weight 1744 [oz_av] 1744 [oz_av] [facility] ([facility]) Systolic blood pressure 114 mm[Hg] 114 mm[Hg] A [facility] ([facility]) Body height 60 [in_i] 60 [in_i] [facility] ([facility]) Diastolic blood pressure 74 mm[Hg] 74 mm[Hg] [facility] ([facility]) Body weight 1728 [oz_av] 1728 [oz_av] [facility] ([facility]) Systolic blood pressure 120 mm[Hg] 120 mm[Hg] A [facility] ([facility]) Body height 60 [in_i] 60 [in_i] [facility] ([facility]) Diastolic blood pressure 55 mm[Hg] 55 mm[Hg] [facility] ([facility]) Body weight 1760 [oz_av] 1760 [oz_av] [facility] ([facility]) Systolic blood pressure 122 mm[Hg] 122 mm[Hg] [facility] Body height 60 [in_i] 60 [in_i] [facility] ([facility]) Diastolic blood pressure 80 mm[Hg] 80 mm[Hg] [facility] ([facility]) Body weight 1778.08 [oz_av] 1778.08 [oz_av] ATH [facility] ([facility]) Systolic blood pressure 127 mm[Hg] 127 mm[Hg] A [facility] ([facility]) Body height 60 [in_i] 60 [in_i] [facility] ([facility]) Diastolic blood pressure 85 mm[Hg] 85 mm[Hg] [facility] ([facility]) Body weight 1760 [oz_av] 1760 [oz_av] [facility] ([facility]) Systolic blood pressure 138 mm[Hg] 138 mm[Hg] [facility] Body height 60 [in_i] 60 [in_i] [facility] ([facility]) Diastolic blood pressure 85 mm[Hg] 85 mm[Hg] [facility] ([facility]) Body weight 1810.08 [oz_av] 1810.08 [oz_av] ATH SHIRA ([facility]) Systolic blood pressure 151 mm[Hg] 151 mm[Hg] [facility] Body height 60 [in_i] 60 [in_i] [facility] ([facility]) Diastolic blood pressure 103 mm[Hg] 103 mm[Hg] A[facility] ([facility]) Body weight 1840 [oz_av] 1840 [oz_av] [facility] ([facility]) Systolic blood pressure 133 mm[Hg] 133 mm[Hg] A [facility] Body height 60 [in_i] 60 [in_i] [facility] ([facility]) Diastolic blood pressure 84 mm[Hg] 84 mm[Hg] [facility] ([facility]) Body weight 1840 [oz_av] 1840 [oz_av] [facility] ([facility]) Systolic blood pressure 123 mm[Hg] 123 mm[Hg] A [facility] ([facility]) Body height 60 [in_i] 60 [in_i] [facility] ([facility]) Diastolic blood pressure 81 mm[Hg] 81 mm[Hg] [facility] ([facility]) Body weight 1860 [oz_av] 1860 [oz_av] [facility] ([facility]) Systolic blood pressure 143 mm[Hg] 143 mm[Hg] A [facility] ([facility]) Body height 60 [in_i] 60 [in_i] [facility] ([facility]) Diastolic blood pressure 91 mm[Hg] 91 mm[Hg] [facility] ([facility]) Body weight 1856 [oz_av] 1856 [oz_av] [facility] ([facility]) Systolic blood pressure 142 mm[Hg] 142 mm[Hg] A [facility] ([facility]) Body height 60 [in_i] 60 [in_i] [facility] ([facility]) Diastolic blood pressure 93 mm[Hg] 93 mm[Hg] [facility] ([facility]) Patient Treatment Plan of Care Planned Activity Planned Date Details Description Data Source (s) Jea-Km-Fjjqzhhj 0.18 mg/0.215 mg/0.25 mg-25 mcg tablet 01/28/2020 12:00:00 AM EDT Ashw[facility] ([facility]) lisdexamfetamine dimesylate 20 MG Oral Capsule [Vyvanse] [facility]IA ([facility]) Phenazopyridine hydrochloride 200 MG Oral Tablet [facility] ([facility]) NITROFURANTOIN, MACROCRYSTALS 25 MG / Ni trofurantoin, Monohydrate 75 MG Oral Capsule [facility] ([facility]) Fluoxetine 20 MG Oral Capsule [facility] ([facility]) Fluconazole 150 MG Oral Tablet [facility] ([facility]) atomoxetine 40 MG Oral Capsule [facility] ([facility]) atomoxetine 40 MG Oral Capsule [Strattera] [facility] ([facility])
--- NOTE | 2020-07-14 21:03 | REPVR ---
PROCEDURE INFORMATION: Exam: XR Complete Acute Abdomen Series Exam date and time: 07/14/2020 7:00 PM Age: 30 years old Clinical indication: Other: Constipation; Additional info: Constipation, n/v TECHNIQUE: Imaging protocol: XR complete acute abdomen series, including 2 or more views of the abdomen and a single view chest. COMPARISON: No relevant prior studies available. FINDINGS: Lungs: Normal. No consolidation. Pleural spaces: Normal. No pleural effusions. No pneumothorax. Heart/Mediastinum: Normal. No cardiomegaly. Gastrointestinal tract: Moderate fecal material in the colon. No dilated bowel loops. Some layering fluid fluid levels in the small bowel. Intraperitoneal space: No mass effect organomegaly. No free air. Bones/joints: Unremarkable. Soft tissues: Normal. IMPRESSION: Constipation. Electronically signed by: Bryce Ortega On 07/14/2020 21:02:54 PM
[2020-07-14] MEDS ORDERED: FLEET OIL RETENTION ENEMA PR STA (21:11)
[2020-07-14] MEDS ORDERED: METHYLNALTREXONE BROMIDE 12 MG/0.6 ML VIAL (RELISTOR) SC ONE (21:15)
[2020-07-14] MEDS ORDERED: MAGNESIUM CITRATE 300 ML BTL PO ONE (21:15)
[2020-07-14 22:27] VITALS: BP 130/83
== END 2020-07-14 22:28 | disposition home or self-care (01) ==
LOC: M ED 18:47
DX: K59.03 Drug induced constipation (principal); F33.9 Major depressive disorder, recurrent, unspecified; F41.9 Anxiety disorder, unspecified; Z79.899 Other long term (current) drug therapy; Z79.891 Long term (current) use of opiate analgesic; Z79.3 Long term (current) use of hormonal contraceptives; Z88.1 Allergy status to other antibiotic agents; Z88.8 Allergy status to other drugs, medicaments and biological substances; F17.210 Nicotine dependence, cigarettes, uncomplicated

== ENCOUNTER 2020-10-03 13:18 | Emergency (ER) | payer OTHER ==
[~2020-10-03] VITALS: Ht 152.4 cm; Wt 50.0 kg
[~2020-10-03 13:18] MED LIST changes: +BUPR150T12 PO; -BUPR150T4 PO; +FLUO40CA PO; +METH10TA2 PO; +NORG1TAB33 PO; +VYVA30CA4 PO
[2020-10-03] MEDS ORDERED: METHYLNALTREXONE BROMIDE 12 MG/0.6 ML VIAL (RELISTOR) SC ONE (14:05)
[2020-10-03] MEDS ORDERED: COLA100C5 PO (15:42)
[2020-10-03 15:52] VITALS: BP 125/76
== END 2020-10-03 15:53 | disposition home or self-care (01) ==
LOC: M ED 13:18
DX: K59.03 Drug induced constipation (principal); K64.8 Other hemorrhoids; F11.10 Opioid abuse, uncomplicated; Z79.899 Other long term (current) drug therapy; Z79.3 Long term (current) use of hormonal contraceptives; Z88.1 Allergy status to other antibiotic agents; Z88.8 Allergy status to other drugs, medicaments and biological substances; F17.210 Nicotine dependence, cigarettes, uncomplicated

== ENCOUNTER 2021-12-10 09:06 | Inpatient (IN) | payer OTHER ==
[~2021-12-10] VITALS: Ht 152.4 cm; Wt 47.7 kg
[~2021-12-10 09:06] MED LIST changes: +BUPRENORPHINE/NALOXONE 8-2MG SUBLINGUAL TABLET(SUBOXONE) SL SCH; -FLUO10CA16 PO; +FLUO10CA18 PO; +METH-1177 PO; -METH10TA2 PO; +OLAN1TAB16 PO; -OLAN5TAB PO
[2021-12-10 10:27] LABS: HEMATOCRIT 35.7 % (36.0-47.0); HEMOGLOBIN 12.9 g/dl (12.0-15.5); MEAN CORPUSCULAR HEMOGLOBIN 29.5 pg (27.0-33.0); MEAN CORPUSCULAR HGB CONC 36.1 g/dl (32.0-36.5); MEAN CORPUSCULAR VOLUME 81.7 fl (80.0-96.0); PLATELET COUNT, AUTOMATED 379 10^3/uL (150-450); RED BLOOD COUNT 4.37 10^6/uL (4.00-5.40)
[2021-12-10 10:49] LABS: HCG, SERUM QUALITATIVE NEGATIVE (NEGATIVE)
[2021-12-10 10:58] LABS: ALT/SGPT 19 U/L (12-78); BILIRUBIN,DIRECT 0.2 MG/DL (0.0-0.2); BILIRUBIN,TOTAL 0.8 MG/DL (0.2-1.0); BLOOD UREA NITROGEN 16 MG/DL (7-18); CALCIUM LEVEL 9.9 MG/DL (8.5-10.1); CARBON DIOXIDE LEVEL 23 MEQ/L (21-32); CHLORIDE LEVEL 109 MEQ/L (98-107); ETHYL ALCOHOL (ETHANOL) < 0.003 % (0.000-0.010); GLOMERULAR FILTRATION RATE > 60.0 (>60); GLUCOSE, FASTING 101 MG/DL (70-100); SALICYLATE LEVEL < 1.7 MG/DL (5.0-30.0); SODIUM LEVEL 141 MEQ/L (136-145); TOTAL PROTEIN 7.4 GM/DL (6.4-8.2)
[2021-12-10 11:56] LABS: AMPHETAMINES LEVEL URINE POSITIVE (NEGATIVE); BARBITURATES URINE NEGATIVE (NEGATIVE); BENZODIAZEPINES URINE NEGATIVE (NEGATIVE); CANNABINOIDS URINE POSITIVE (NEGATIVE); COCAINE METABOLITE URINE POSITIVE (NEGATIVE); METHADONE URINE NEGATIVE (NEGATIVE); OPIATES URINE NEGATIVE (NEGATIVE); PHENCYCLIDINE URINE NEGATIVE (NEGATIVE)
[2021-12-10 12:17] LABS: RSV AMPLIFICATION NEGATIVE (NEGATIVE)
[2021-12-10 13:20] LABS: ACETAMINOPHEN LEVEL < 2.0 UG/ML (0.0-30.0)
[2021-12-10] MEDS ORDERED: LORazepam 2 MG TAB PO STA (13:22)
[2021-12-10] MEDS: BUPRENORPHINE/NALOXONE 8-2MG SUBLINGUAL TABLET(SUBOXONE) SL SCH ×2 (15:20→21:18)
[2021-12-10] MEDS ORDERED: TRAZ-252 PO (18:24)
[2021-12-10] MEDS ORDERED: SENN-83 PO (18:24)
[2021-12-10] MEDS ORDERED: ARIP1TAB6 PO (18:24)
[2021-12-10] MEDS ORDERED: BUPR1SUB35 SL (18:24)
[2021-12-10] MEDS ORDERED: VYVA50CA4 PO (18:24)
[2021-12-10] MEDS ORDERED: HOME MED LIST COMPLETE! XX SCH (18:25)
[2021-12-10] MEDS ORDERED: PATIENT COMMENT (18:37)
[2021-12-10] MEDS ORDERED: OLANZapine INTRAMUSCULAR 10MG VIAL IM ONE (22:10)
[2021-12-11] MEDS: BUPRENORPHINE/NALOXONE 8-2MG SUBLINGUAL TABLET(SUBOXONE) SL SCH ×3 (09:00→21:37)
[2021-12-12] MEDS: BUPRENORPHINE/NALOXONE 8-2MG SUBLINGUAL TABLET(SUBOXONE) SL SCH ×3 (09:29→22:13)
[2021-12-12] MEDS ORDERED: SENNA 8.6 MG TAB (SENOKOT) PO PRN (15:15)
[2021-12-12] MEDS ORDERED: IBUPROFEN 400MG TAB PO PRN (15:15)
[2021-12-12] MEDS ORDERED: traZODone 50 MG TAB PO PRN (15:15)
[2021-12-12] MEDS ORDERED: MOM 30ML SUSPENSION UDC PO PRN (15:15)
[2021-12-12] MEDS ORDERED: MAALOX 30 ML SUSP *UDC PO PRN (15:15)
[2021-12-12] MEDS: NICOTINE 21MG/24HR 1 EA TRANSDERMAL TD SCH (16:09)
[2021-12-12 21:45] VITALS: BP 123/84
[2021-12-12] MEDS: traZODone 50 MG TAB PO SCH (22:13)
[2021-12-13 06:00] VITALS: BP 109/62
[2021-12-13] MEDS: FLUoxetine 20MG CAP PO SCH (09:07)
[2021-12-13] MEDS: BUPRENORPHINE/NALOXONE 8-2MG SUBLINGUAL TABLET(SUBOXONE) SL SCH ×3 (09:07→20:38)
[2021-12-13] MEDS: NICOTINE 21MG/24HR 1 EA TRANSDERMAL TD SCH (09:08)
[2021-12-13] MEDS ORDERED: MIRALAX *UNIT DOSE* 17GM PACKET PO PRN (17:25)
[2021-12-13 18:59] VITALS: BP 136/80
[2021-12-13] MEDS ORDERED: MAGNESIUM CITRATE 300 ML BTL PO ONE (19:00)
[2021-12-13] MEDS: DOCUSATE SODIUM 100MG CAPSULE PO SCH (20:37)
[2021-12-13] MEDS: traZODone 50 MG TAB PO SCH (20:38)
[2021-12-13] MEDS ORDERED: BUPRENORPHINE/NALOXONE 8-2MG SUBLINGUAL TABLET(SUBOXONE) SL SCH (21:00)
[2021-12-14 06:14] VITALS: BP_SYST 104; BP_SYST 144; BP_DIAS 54; BP_DIAS 62
[2021-12-14] MEDS: BUPRENORPHINE/NALOXONE 8-2MG SUBLINGUAL TABLET(SUBOXONE) SL SCH ×3 (08:46→20:01)
[2021-12-14] MEDS: DOCUSATE SODIUM 100MG CAPSULE PO SCH ×2 (08:46→20:01)
[2021-12-14] MEDS: FLUoxetine 20MG CAP PO SCH (08:47)
[2021-12-14] MEDS: NICOTINE 21MG/24HR 1 EA TRANSDERMAL TD SCH (08:48)
[2021-12-14 18:03] VITALS: BP 110/62
[2021-12-14] MEDS: MIRTAZAPINE 15 MG TAB PO SCH (20:01)
[2021-12-14] MEDS: traZODone 25MG PER 1/2 TABLET PO SCH (20:01)
[2021-12-15 06:54] VITALS: BP 97/51
[2021-12-15] MEDS: FLUoxetine 20MG CAP PO SCH (08:17)
[2021-12-15] MEDS: DOCUSATE SODIUM 100MG CAPSULE PO SCH ×2 (08:17→20:51)
[2021-12-15] MEDS: BUPRENORPHINE/NALOXONE 8-2MG SUBLINGUAL TABLET(SUBOXONE) SL SCH ×3 (08:17→20:51)
[2021-12-15] MEDS: NICOTINE 21MG/24HR 1 EA TRANSDERMAL TD SCH (08:19)
[2021-12-15 18:07] VITALS: BP 111/74
[2021-12-15] MEDS: traZODone 25MG PER 1/2 TABLET PO SCH (20:51)
[2021-12-15] MEDS: MIRTAZAPINE 15 MG TAB PO SCH (20:51)
[2021-12-16 06:27] VITALS: BP 110/61
[2021-12-16] MEDS: BUPRENORPHINE/NALOXONE 8-2MG SUBLINGUAL TABLET(SUBOXONE) SL SCH ×3 (08:25→21:34)
[2021-12-16] MEDS: FLUoxetine 20MG CAP PO SCH (08:25)
[2021-12-16] MEDS: DOCUSATE SODIUM 100MG CAPSULE PO SCH ×2 (08:25→21:34)
[2021-12-16] MEDS: NICOTINE 21MG/24HR 1 EA TRANSDERMAL TD SCH (08:36)
[2021-12-16 18:00] VITALS: BP 134/60
[2021-12-16] MEDS: traZODone 25MG PER 1/2 TABLET PO SCH (21:34)
[2021-12-16] MEDS: MIRTAZAPINE 15 MG TAB PO SCH (21:34)
[2021-12-17 07:07] VITALS: BP 117/69
[2021-12-17] MEDS: DOCUSATE SODIUM 100MG CAPSULE PO SCH ×2 (08:12→20:19)
[2021-12-17] MEDS: BUPRENORPHINE/NALOXONE 8-2MG SUBLINGUAL TABLET(SUBOXONE) SL SCH ×3 (08:12→20:19)
[2021-12-17] MEDS: FLUoxetine 20MG CAP PO SCH (08:13)
[2021-12-17] MEDS: NICOTINE 21MG/24HR 1 EA TRANSDERMAL TD SCH (08:14)
[2021-12-17 18:05] VITALS: BP 112/56
[2021-12-17] MEDS: MIRTAZAPINE 15 MG TAB PO SCH (20:19)
[2021-12-17] MEDS: traZODone 25MG PER 1/2 TABLET PO SCH (20:19)
[2021-12-18 06:00] VITALS: BP 116/56
[2021-12-18] MEDS: NICOTINE 21MG/24HR 1 EA TRANSDERMAL TD SCH (09:00)
[2021-12-18] MEDS: BUPRENORPHINE/NALOXONE 8-2MG SUBLINGUAL TABLET(SUBOXONE) SL SCH ×3 (09:28→21:18)
[2021-12-18] MEDS: DOCUSATE SODIUM 100MG CAPSULE PO SCH ×2 (09:28→21:18)
[2021-12-18] MEDS: FLUoxetine 20MG CAP PO SCH (09:28)
[2021-12-18 15:41] VITALS: BP 115/62
[2021-12-18] MEDS: MIRTAZAPINE 15 MG TAB PO SCH (21:18)
[2021-12-18] MEDS: traZODone 25MG PER 1/2 TABLET PO SCH (21:18)
[2021-12-19 06:42] VITALS: BP 103/65
[2021-12-19] MEDS: NICOTINE 21MG/24HR 1 EA TRANSDERMAL TD SCH (08:37)
[2021-12-19] MEDS: DOCUSATE SODIUM 100MG CAPSULE PO SCH ×2 (08:39→20:02)
[2021-12-19] MEDS: BUPRENORPHINE/NALOXONE 8-2MG SUBLINGUAL TABLET(SUBOXONE) SL SCH ×3 (08:39→20:02)
[2021-12-19] MEDS: FLUoxetine 20MG CAP PO SCH (08:40)
[2021-12-19 18:26] VITALS: BP 99/55
[2021-12-19] MEDS: traZODone 25MG PER 1/2 TABLET PO SCH (20:02)
[2021-12-19] MEDS: MIRTAZAPINE 15 MG TAB PO SCH (20:02)
[2021-12-20 06:39] VITALS: BP 133/63
[2021-12-20] MEDS: NICOTINE 21MG/24HR 1 EA TRANSDERMAL TD SCH ×2 (08:22→09:04)
[2021-12-20] MEDS: DOCUSATE SODIUM 100MG CAPSULE PO SCH (08:24)
[2021-12-20] MEDS: BUPRENORPHINE/NALOXONE 8-2MG SUBLINGUAL TABLET(SUBOXONE) SL SCH (08:24)
[2021-12-20] MEDS: FLUoxetine 20MG CAP PO SCH (08:25)
[2021-12-20] MEDS ORDERED: ARIP1TAB6 PO (08:57)
[2021-12-20] MEDS ORDERED: TRAZ-252 PO (08:57)
[2021-12-20] MEDS ORDERED: COLA100C5 PO (08:57)
[2021-12-20] MEDS ORDERED: FLUO40CA PO (08:57)
[2021-12-20] MEDS ORDERED: MIRT-10 PO (08:57)
[2021-12-20] MEDS ORDERED: NICO21PAT TD (08:57)
== END 2021-12-20 11:17 | disposition home or self-care (01) | DRG 751 ==
LOC: M ED 09:06 → M ED INP 12-12 15:11 → M PSY 12-12 21:55
PROVIDERS: ADMIT Student in an Organized Health Care Education/Training Program; ATTEND Student in an Organized Health Care Education/Training Program
DX: F33.3 Major depressive disorder, recurrent, severe with psychotic symptoms (principal); F11.10 Opioid abuse, uncomplicated; F19.159 Other psychoactive substance abuse with psychoactive substance-induced psychotic disorder, unspecified; F14.10 Cocaine abuse, uncomplicated; F12.10 Cannabis abuse, uncomplicated; F17.200 Nicotine dependence, unspecified, uncomplicated; Z81.1 Family history of alcohol abuse and dependence; Z62.811 Personal history of psychological abuse in childhood; Z91.410 Personal history of adult physical and sexual abuse; Z79.899 Other long term (current) drug therapy; K59.09 Other constipation; Z88.1 Allergy status to other antibiotic agents; Z88.8 Allergy status to other drugs, medicaments and biological substances